=== PATIENT | female | born 1995 | race Caucasian/White ===

== ENCOUNTER 2016-10-16 12:33 | Emergency (ER) | payer OTHER ==
[2016-10-16] MEDS ORDERED: GASTROGRAFIN SOLUTION 30ML (Q9963) As Ordered ONE (14:47)
[2016-10-16] MEDS ORDERED: KETOROLAC 30 MG/ML VIAL (J1885) As Ordered ONE (14:48)
[2016-10-16] MEDS ORDERED: TRIMETHOBENZAMIDE HCL INJ 200 MG/2 ML VIAL (J3250) As Ordered ONE (14:51)
[2016-10-16 15:29] LABS: ALBUMIN 4.7 GM/DL (3.2-5.2); ALBUMIN/GLOBULIN RATIO 1.47 (1.00-1.93); ALKALINE PHOSPHATASE 79 U/L (45-117); ALT/SGPT 21 U/L (12-78); AMYLASE 65 U/L (25-115); ANION GAP 8 MEQ/L (8-16); AST/SGOT 12 U/L (15-37); BILIRUBIN,DIRECT 0.2 MG/DL (0.0-0.2); BILIRUBIN,TOTAL 0.7 MG/DL (0.2-1.0); BLOOD UREA NITROGEN 10 MG/DL (7-18); CALCIUM LEVEL 9.5 MG/DL (8.5-10.1); CARBON DIOXIDE LEVEL 28 MEQ/L (21-32); CHLORIDE LEVEL 107 MEQ/L (98-107); CREATININE FOR GFR 1.02 MG/DL (0.55-1.02); GLOMERULAR FILTRATION RATE > 60.0 (>60); GLUCOSE, FASTING 95 MG/DL (70-105); POTASSIUM SERUM 3.4 MEQ/L (3.5-5.1); SODIUM LEVEL 143 MEQ/L (136-145); TOTAL PROTEIN 7.9 GM/DL (6.4-8.2)
[2016-10-16 16:02] LABS: BASO # 0.1 K/mm3 (0.0-0.2); BASO % 0.7 % (0.0-1.0); EOS # 0.1 K/mm3 (0.0-0.50); EOS % 0.7 % (0.0-3.0); LARGE UNSTAINED CELL # 0.2 K/mm3 (0.0-0.4); LARGE UNSTAINED CELL % 1.4 % (0.0-4.0); LYMPH # 2.9 K/mm3 (1.5-6.5); LYMPH % 23.3 % (24.0-44.0); MEAN CORPUSCULAR HEMOGLOBIN 28.7 pg (27.0-33.0); MEAN CORPUSCULAR HGB CONC 33.1 g/dl (32.0-36.5); MEAN CORPUSCULAR VOLUME 86.6 fl (80.0-96.0); MONO # 0.4 K/mm3 (0.0-0.8); NEUTROPHILS # 8.5 K/mm3 (1.8-7.7); NEUTROPHILS % 71.1 % (36.0-66.0); PLATELET COUNT, AUTOMATED 260 k/mm3 (150-450); RED CELL DISTRIBUTION WIDTH 14.8 % (11.5-14.5); WHITE BLOOD COUNT 11.9 K/mm3 (4.0-10.0)
[2016-10-16] MEDS ORDERED: ISOVUE-370 76% 100ML VIAL (Q9967) As Ordered ONE (16:14)
--- NOTE | 2016-10-16 16:46 | REP ---
Clinical: Right lower quadrant pain. Technique: Axial contrast enhanced images from the lung bases to the pubic symphysis using oral and 100 ml Isovue 370 intravenous contrast material with coronal and sagittal re-formations. Findings: Lung bases clear. Visualized heart and pericardium normal. Liver, spleen, pancreas, gallbladder, bilateral adrenal glands and kidneys are normal. The enteric system is without obstruction or acute inflammatory process and a normal terminal ileum and appendix are identified in the right lower quadrant. Pelvis demonstrates normal bladder and age-appropriate uterus/adnexa with IUD in satisfactory position and subtle cystic changes to the right ovary likely related to menstrual cycle and possibly related to patient's symptoms. No pelvic fluid or ascites. No free air. No adenopathy. Vasculature is normal. Musculoskeletal structures demonstrate chronic lumbosacral scoliosis. Impression: 1. Normal appendix and no evidence for acute appendicitis or significant acute intra-abdominal/pelvic pathology. 2. Cystic changes to the right ovary likely physiologic in possibly related to patient's symptoms. No free fluid. Signed by Jordan Carrillo MD 10/16/2016 04:38 P
[2016-10-16 17:10] LABS: CONTROL LINE UCG INT CTR LINE PRESENT
--- NOTE | 2016-10-16 17:28 | EDDOCDS ---
Physician Documentation [facility] Name: Massiel Goodrich Age: 21 yrs Sex: Female : 1995 Arrival Date: 10/16/2016 Time: 12:33 Bed I4 / M4 Private MD: Alonso [facility] [place] Disposition: 10/16/16 17:17 Discharged to Home/Self Care. Impression: Other ovarian cysts - RIGHT, Lower abdominal pain, unspecified - RLQ, Nausea with vomiting, unspecified. - Condition is Stable. - Discharge Instructions: Nausea and Vomiting, Ovarian Cyst. - Prescriptions for Ultram 50 mg Oral Tablet - take 1 tablet by ORAL route every 6 hours As needed MDD: 4 tabs; 15 tablet. Tigan 300 mg Oral Capsule - take 1 capsule by ORAL route every 12 hours As needed; 20 capsule. - Medication Reconciliation, Local Pharmacy Hours form. - Follow up: Emergency Department; When: As needed; Reason: Worsening of conditions. Follow up: Your Pct; When: 2 - 3 days; Reason: Wound/Symptom Recheck, Recheck today's complaints, Continuance of care. - Problem is new. - Symptoms are unchanged. Historical: - Allergies: No known drug Allergies; - Home Meds: 1. Lexapro 20 mg Oral tab 1 tab once daily 2. Excedrin Extra Strength 250-250-65 mg Oral tab as needed - PMHx: Anxiety; Depression; - PSHx: none; - Social history: Smoking status: Patient states former smoker of tobacco. No barriers to communication noted, The patient speaks fluent Malay. - Family history: Not pertinent. - : The pt / caregiver states he / she is not on anticoagulants. Home medication list is obtained from the patient. - Exposure Risk Screening:: None identified. HEALTHCARE TRANSLATOR: 10/16 12:38 LMP 09/19/2016 kcs Vital Signs: 12:34 BP 113 / 64; Pulse 70; Resp 20; Temp 98.3(O); Pulse Ox 97% ; Weight 57.61 kg / 127.01 cmb lbs; Height 5 ft. 4 in. (162.56 cm); Pain 8/10; 15:32 Pain 7/10; kr3 15:35 BP 121 / 62; Pulse 65; Resp 18; Temp 98.0; Pulse Ox 99% ; Pain 7/10; jam1 17:21 BP 129 / 69; Pulse 76; Resp 18; Temp 98.1; Pulse Ox 99% ; Pain 8/10; jam1 12:34 Body Mass Index 21.80 (57.61 kg, 162.56 cm) cmb MDM: 14:42 NS 0.9% 1000 ml IV at bolus once ordered. dt4 14:42 ketorolac 30 mg IVP once ordered. dt4 14:42 IV Saline Lock ordered. dt4 14:42 Undress patient appropriately for examination ordered. dt4 14:42 Tigan 200 mg IM once ordered. dt4 14:42 Amylase Ordered. EDMS 14:42 Basic Metabolic Profile Ordered. EDMS 14:42 CBC with Diff Ordered. EDMS 14:42 Lipase Ordered. EDMS 14:42 Liver Profile Ordered. EDMS 14:42 Urinalysis Ordered. EDMS 14:42 CRP Ordered. EDMS 14:42 Urine Culture Ordered. EDMS 14:43 CT ABD & PELVIS: IV and Oral Contrast Ordered. EDMS 14:43 NOTHING BY MOUTH+DIET ordered. EDMS 15:53 [facility] Payment Agreement was scanned into [employer] and attached to record. jp5 15:53 Financial registration complete. jp5 16:47 UCG- In Lab Ordered. EDMS Administered Medications: 14:59 Drug: NS 0.9% 1000 ml [sodium chloride 0.9 % injection solution] Route: IV; Rate: dsf bolus; Site: right antecubital; 17:26 Follow up: IV Status: Completed infusion; IV Intake: 1000ml dsf 14:59 Drug: ketorolac 30 mg [ketorolac 30 mg/mL (1 mL) injection solution (1 mL)] Route: IVP; dsf Site: right antecubital; 15:32 Follow up: Pain 7/10 Adult; Response: No significant change. kr3 14:59 Drug: Tigan 200 mg [Tigan 100 mg/mL intramuscular solution (2 mL)] Route: IM; Site: dsf right gluteus; 15:32 Follow up: Response: Nausea is resolved kr3 Signatures: Dispatcher [employer] EDMS Kaitlyn Crowell RN RN kcs Fuller, Desiree, RN RN dsf Mi Orozco PA-C PA-C dt4 Jeremiah Castillo 5 Gisella Sparrow RN kr3 The chart was reviewed and I authenticate all verbal orders and agree with the evaluation and treatment provided.Attachments: 15:53 [facility] Payment Agreement jp5 MTDD
--- NOTE | 2016-10-16 17:28 | EDDOCDS ---
Nurse's Notes [facility] Name: Massiel Goodrich Age: 21 yrs Sex: Female : 1995 Arrival Date: 10/16/2016 Time: 12:33 Bed I4 / M4 Private MD: DALE Gupta Diagnosis: Other ovarian cysts-RIGHT;Lower abdominal pain, unspecified-RLQ;Nausea with vomiting, unspecified Presentation: 10/16 12:36 Presenting complaint: Patient states: for the last half hour 45 minutes she has had kcs vomiting and diarrhea - now pins and needles in her hands, feels dizzy and her vision is blurry. Adult Sepsis Screening: The patient does not have new or worsening altered mentation. Patient's respiratory rate is less than 22. Systolic blood pressure is greater than 100. Patient has a qSOFA score of 0- Negative Sepsis Screen. Suicide/Homicide risk assessment- the patient denies having any suicidal and/or homicidal ideations and does not present with any other emotional, behavioral or mental health complaints. Status: The patient is a dependent. Transition of care: patient was not received from another setting of care. 12:36 Acuity: JOVANY Level 3 kcs 12:36 Method Of Arrival: Wheelchair kcs Triage Assessment: 12:38 General: Appears well developed, well nourished, well groomed, patient laying in kcs wheelchair like a dishrag. Behavior is cooperative, flat. Pain: Location: abdominal pain Pain currently is 9 out of 10 on a pain scale. Pt Declines HIV testing. Neurological: Level of Consciousness is awake, alert. Respiratory: Airway is patent Respiratory effort is even, unlabored, Respiratory pattern is regular, symmetrical. GI: Reports diarrhea, nausea, vomiting. Derm: Skin is intact, is healthy with good turgor, Skin is dry, Skin is normal. SUGAR SAMPLER: 12:38 LMP 09/19/2016 kcs Historical: - Allergies: No known drug Allergies; - Home Meds: 1. Lexapro 20 mg Oral tab 1 tab once daily 2. Excedrin Extra Strength 250-250-65 mg Oral tab as needed - PMHx: Anxiety; Depression; - PSHx: none; - Social history: Smoking status: Patient states former smoker of tobacco. No barriers to communication noted, The patient speaks fluent Greek. - Family history: Not pertinent. - : The pt / caregiver states he / she is not on anticoagulants. Home medication list is obtained from the patient. - Exposure Risk Screening:: None identified. Screenin:02 Screening information is obtained from the patient. Fall risk: No risks identified. kr3 Assistance ADL's: requires no assistance with activities of daily living. Abuse/DV Screen: The patient / caregiver reports he/she is: not in a situation that causes fear, pain or injury. Nutritional screening: No deficits noted. Advance Directives: Currently, there is no health care proxy. home support is adequate. Assessment: 15:01 General: Appears in no apparent distress, comfortable, Behavior is cooperative. Pain: kr3 Location: right lower quadrant Pain currently is 8 out of 10 on a pain scale. Neurological: No deficits noted. Respiratory: Respiratory effort is even, unlabored. GI: Bowel sounds present X 4 quads. Abd is tender to palpation in right lower quadrant. Derm: Skin is pink, warm & dry. 15:32 Reassessment: Patient appears in no apparent distress at this time. General: drinking kr3 and tolerating CT contrast with no difficulty. Pain: Location: abdomen Pain currently is 7 out of 10 on a pain scale. 16:27 Reassessment: Patient appears in no apparent distress at this time. Pain: Location: kr3 abdomen Pain currently is 6 out of 10 on a pain scale. GI: Denies nausea. 17:25 Adult Sepsis Screening: The patient does not have new or worsening altered mentation. dsf Patient's respiratory rate is less than 22. Systolic blood pressure is greater than 100. Patient has a qSOFA score of 0- Negative Sepsis Screen. General: Appears in no apparent distress, comfortable, Behavior is appropriate for age, cooperative. Neurological: Level of Consciousness is awake, alert. Cardiovascular: Capillary refill < 3 seconds. Respiratory: Airway is patent Respiratory effort is even, unlabored, Respiratory pattern is regular, symmetrical. GI: Abdomen is non- distended. Derm: Skin is pink, warm & dry. Vital Signs: 12:34 BP 113 / 64; Pulse 70; Resp 20; Temp 98.3(O); Pulse Ox 97% ; Weight 57.61 kg; Height 5 cmb ft. 4 in. (162.56 cm); Pain 8/10; 15:32 Pain 7/10; kr3 15:35 BP 121 / 62; Pulse 65; Resp 18; Temp 98.0; Pulse Ox 99% ; Pain 7/10; jam1 17:21 BP 129 / 69; Pulse 76; Resp 18; Temp 98.1; Pulse Ox 99% ; Pain 8/10; jam1 12:34 Body Mass Index 21.80 (57.61 kg, 162.56 cm) cmb Vitals: 12:34 Log In Time: October 16, 2016 at 12:33. cmb ED Course: 12:34 Patient visited by Heydi May. cmb 12:34 Alonso [facility] is Private Physician. cmb 12:34 Patient moved to Waiting cmb 12:35 Patient moved to Pre RCE cmb 12:37 Triage Initiated kcs 13:56 Patient moved to Triage 2 kcs 14:05 [facility] dt4 14:05 Tony Ellis MD is Attending Physician. dt4 14:05 Patient visited by Mi Orozco PA-C. dt4 14:46 Patient moved to I4 / M4 rs3 15:01 CRP Sent. kr3 15:01 Amylase Sent. kr3 15:01 Basic Metabolic Profile Sent. kr3 15:01 CBC with Diff Sent. kr3 15:01 Lipase Sent. kr3 15:01 Liver Profile Sent. kr3 15:01 Urinalysis Sent. kr3 15:01 Urine Culture Sent. kr3 15:01 Inserted saline lock: 20 gauge in right antecubital area and blood collected. The kr3 patient tolerated the procedure well. 15:32 Patient visited by Gisella Sparrow RN. kr3 15:53 [facility] Payment Agreement was scanned into [employer] and attached to record. jp5 16:[address] kr3 16:26 Patient moved to I4 / M4 dsf 16:27 The patient / caregiver is instructed regarding the plan of care and ED course. Patient clary has correct armband on for positive identification. Placed in gown. Bed in low position. Call light in reach. Side rails up X 1. 16:28 Patient visited by Gisella Sparrow RN. kr3 16:48 Patient name changed from Massiel\S\\S\Goodrich\S\ to Massiel\S\Juliette\S\Goodrich. EDMS 17:17 Your Infrastructure Solutions Architect is Referral Physician. dt4 17:26 Discontinued lock intact, bleeding controlled, pressure dressing applied, No dsf redness/swelling at site. No procedures done that require assistance. Administered Medications: 14:59 Drug: NS 0.9% 1000 ml [sodium chloride 0.9 % injection solution] Route: IV; Rate: dsf bolus; Site: right antecubital; 17:26 Follow up: IV Status: Completed infusion; IV Intake: 1000ml dsf 14:59 Drug: ketorolac 30 mg [ketorolac 30 mg/mL (1 mL) injection solution (1 mL)] Route: IVP; dsf Site: right antecubital; 15:32 Follow up: Pain 7/10 Adult; Response: No significant change. kr3 14:59 Drug: Tigan 200 mg [Tigan 100 mg/mL intramuscular solution (2 mL)] Route: IM; Site: dsf right gluteus; 15:32 Follow up: Response: Nausea is resolved kr3 Intake: 17:26 IV: 1000.00ml; Total: 1000.00ml. dsf Order Results: Lab Order: Amylase; SPEC'M 10/16/16 14:57 Test: AMYLASE; Value: 65; Range: 25-115; Units: U/L; Status: F Lab Order: Basic Metabolic Profile; SPEC'M 10/16/16 14:57 Test: GLUCOSE, FASTING; Value: 95; Range: 70-105; Units: MG/DL; Status: F Test: BLOOD UREA NITROGEN; Value: 10; Range: 7-18; Units: MG/DL; Status: F Test: CREATININE FOR GFR; Value: 1.02; Range: 0.55-1.02; Units: MG/DL; Status: F Test: GLOMERULAR FILTRATION RATE; Value: > 60.0; Range: >60; Status: F Test: SODIUM LEVEL; Value: 143; Range: 136-145; Units: MEQ/L; Status: F Test: POTASSIUM SERUM; Value: 3.4; Range: 3.5-5.1; Abnormal: Below low normal; Units: MEQ/L; Status: F Test: CHLORIDE LEVEL; Value: 107; Range: 98-107; Units: MEQ/L; Status: F Test: CARBON DIOXIDE LEVEL; Value: 28; Range: 21-32; Units: MEQ/L; Status: F Test: ANION GAP; Value: 8; Range: 8-16; Units: MEQ/L; Status: F Test: CALCIUM LEVEL; Value: 9.5; Range: 8.5-10.1; Units: MG/DL; Status: F Test Note: ; Units are mL/min/1.73 m2 Chronic Kidney Disease Staging per NKF: Stage I & II GFR >=60 Normal to Mildly Decreased Stage III GFR 30-59 Moderately Decreased Stage IV GFR 15-29 Severely Decreased Stage V GFR <15 Very Little GFR Left ESRD GFR <15 on IMPORTER OR EXPORTER Lab Order: CBC with Diff; SPEC'M 10/16/16 14:57 Test: WHITE BLOOD COUNT; Value: 11.9; Range: 4.0-10.0; Abnormal: Above high normal; Units: K/mm3; Status: F Test: RED BLOOD COUNT; Value: 4.86; Range: 4.00-5.40; Units: M/mm3; Status: F Test: HEMOGLOBIN; Value: 13.9; Range: 12.0-16.0; Units: g/dl; Status: F Test: HEMATOCRIT; Value: 42.1; Range: 36.0-47.0; Units: %; Status: F Test: MEAN CORPUSCULAR VOLUME; Value: 86.6; Range: 80.0-96.0; Units: fl; Status: F Test: MEAN CORPUSCULAR HEMOGLOBIN; Value: 28.7; Range: 27.0-33.0; Units: pg; Status: F Test: MEAN CORPUSCULAR HGB CONC; Value: 33.1; Range: 32.0-36.5; Units: g/dl; Status: F Test: RED CELL DISTRIBUTION WIDTH; Value: 14.8; Range: 11.5-14.5; Abnormal: Above high normal; Units: %; Status: F Test: PLATELET COUNT, AUTOMATED; Value: 260; Range: 150-450; Units: k/mm3; Status: F Test: NEUTROPHILS %; Value: 71.1; Range: 36.0-66.0; Abnormal: Above high normal; Units: %; Status: F Test: LYMPH %; Value: 23.3; Range: 24.0-44.0; Abnormal: Below low normal; Units: %; Status: F Test: MONO %; Value: 3.0; Range: 0.0-5.0; Units: %; Status: F Test: EOS %; Value: 0.7; Range: 0.0-3.0; Units: %; Status: F Test: BASO %; Value: 0.7; Range: 0.0-1.0; Units: %; Status: F Test: LARGE UNSTAINED CELL %; Value: 1.4; Range: 0.0-4.0; Units: %; Status: F Test: NEUTROPHILS #; Value: 8.5; Range: 1.8-7.7; Abnormal: Above high normal; Units: K/mm3; Status: F Test: LYMPH #; Value: 2.9; Range: 1.5-6.5; Units: K/mm3; Status: F Test: MONO #; Value: 0.4; Range: 0.0-0.8; Units: K/mm3; Status: F Test: EOS #; Value: 0.1; Range: 0.0-0.50; Units: K/mm3; Status: F Test: BASO #; Value: 0.1; Range: 0.0-0.2; Units: K/mm3; Status: F Test: LARGE UNSTAINED CELL #; Value: 0.2; Range: 0.0-0.4; Units: K/mm3; Status: F Lab Order: Lipase; SPEC' 10/16/16 14:57 Test: LIPASE; Value: 71; Range: 73-393; Abnormal: Below low normal; Units: U/L; Status: F Lab Order: Liver Profile; SPEC' 10/16/16 14:57 Test: AST/SGOT; Value: 12; Range: 15-37; Abnormal: Below low normal; Units: U/L; Status: F Test: ALT/SGPT; Value: 21; Range: 12-78; Units: U/L; Status: F Test: ALKALINE PHOSPHATASE; Value: 79; Range: 45-117; Units: U/L; Status: F Test: BILIRUBIN,TOTAL; Value: 0.7; Range: 0.2-1.0; Units: MG/DL; Status: F Test: BILIRUBIN,DIRECT; Value: 0.2; Range: 0.0-0.2; Units: MG/DL; Status: F Test: TOTAL PROTEIN; Value: 7.9; Range: 6.4-8.2; Units: GM/DL; Status: F Test: ALBUMIN; Value: 4.7; Range: 3.2-5.2; Units: GM/DL; Status: F Test: ALBUMIN/GLOBULIN RATIO; Value: 1.47; Range: 1.00-1.93; Status: F Lab Order: Urinalysis; SPEC'M 10/16/16 14:57 Test: APPEARANCE, URINE; Value: CLEAR; Range: CLEAR; Status: F Test: COLOR, URINE; Value: YELLOW; Range: YELLOW; Status: F Test: PH,URINE; Value: 6.0; Range: 5.0-9.0; Units: UNITS; Status: F Test: SPECIFIC GRAVITY URINE AUTO; Value: 1.013; Range: 1.002-1.035; Status: F Test: PROTEIN, URINE AUTO; Value: NEGATIVE; Range: NEGATIVE; Units: mg/dL; Status: F Test: GLUCOSE, URINE (UA) AUTO; Value: NEGATIVE; Range: NEGATIVE; Units: mg/dL; Status: F Test: KETONE, URINE AUTO; Value: TRACE; Range: NEGATIVE; Abnormal: Above high normal; Units: mg/dL; Status: F Test: UROBILINOGEN, URINE AUTO; Value: 0.2; Range: 0.0-2.0; Units: mg/dL; Status: F Test: BILIRUBIN, URINE AUTO; Value: NEGATIVE; Range: NEGATIVE; Status: F Test: NITRITE, URINE AUTO; Value: NEGATIVE; Range: NEGATIVE; Status: F Test: LEUKOCYTE ESTERASE, URINE AUTO; Value: 1+; Range: NEGATIVE; Abnormal: Above high normal; Status: F Test: BLOOD, URINE BLOOD; Value: NEGATIVE; Range: NEGATIVE; Status: F Test: WBC, URINE AUTO; Value: 1; Range: 0-3; Units: /HPF; Status: F Test: RBC, URINE AUTO; Value: 2; Range: 0-3; Units: /HPF; Status: F Test: BACTERIA, URINE AUTO; Value: 1+; Range: NEGATIVE; Abnormal: Above high normal; Status: F Test: SQUAMOUS EPITHELIAL CELL UR AU; Value: 3; Range: 0-6; Units: /HPF; Status: F Test: MUCUS, URINE; Value: SMALL; Range: NEGATIVE; Status: F Test: HYALINE CAST, URINE AUTO; Value: 0; Range: 0-1; Units: /LPF; Status: F Lab Order: CRP; SPEC'M 10/16/16 14:57 Test: C REACTIVE PROTEIN QUANTITATIV; Value: < 0.30; Range: 0.00-0.30; Units: MG/DL; Status: F Lab Order: UCG- In Lab; SPEC'M 10/16/16 14:57 Test: URINE PREG TEST; Value: NEGATIVE; Range: NEGATIVE; Status: F Outcome: 16:27 CT Study completed. kr3 17:17 Discharge ordered by Provider. dt4 17:26 Discharge Assessment: Patient awake, alert and oriented x 3. No cognitive and/or dsf functional deficits noted. Patient verbalized understanding of disposition instructions. patient administered narcotics - no. The following High Risk Discharge criteria are identified: None. Discharged to home ambulatory, with significant other. Condition: stable. Discharge instructions given to patient, Instructed on discharge instructions, follow up and referral plans. medication usage, no driving heavy equipment, Demonstrated understanding of instructions, medications, Pt was receptive of discharge instructions/ teaching. Prescriptions given X 2. Property sent home with patient. 17:27 Patient left the ED. dsf Signatures: Dispatcher [employer] EDMS Kaitlyn Crowell, RN RN Keyana Hinojosa, PRODUCTION BORING MACHINE OPERATOR PRODUCTION BORING MACHINE OPERATOR jam1 Gisella Sparrow RN RN ada3 Polly Montanez RN RN rs3 Cary Anguiano RN RN dsf Heydi May Diane, PA-C PA-C dt4 Jeremiah Castillo MTDD
--- NOTE | 2016-10-18 18:27 | EDDOCDS ---
Nurse's Notes [facility] Name: Massiel Goodrich Age: 21 yrs Sex: Female : 1995 Arrival Date: 10/16/2016 Time: 12:33 Bed I4 / M4 Private MD: DALE Gupta Diagnosis: Other ovarian cysts-RIGHT;Lower abdominal pain, unspecified-RLQ;Nausea with vomiting, unspecified Presentation: 10/16 12:36 Presenting complaint: Patient states: for the last half hour 45 minutes she has had kcs vomiting and diarrhea - now pins and needles in her hands, feels dizzy and her vision is blurry. Adult Sepsis Screening: The patient does not have new or worsening altered mentation. Patient's respiratory rate is less than 22. Systolic blood pressure is greater than 100. Patient has a qSOFA score of 0- Negative Sepsis Screen. Suicide/Homicide risk assessment- the patient denies having any suicidal and/or homicidal ideations and does not present with any other emotional, behavioral or mental health complaints. Status: The patient is a dependent. Transition of care: patient was not received from another setting of care. 12:36 Acuity: JOVANY Level 3 kcs 12:36 Method Of Arrival: Wheelchair kcs Triage Assessment: 12:38 General: Appears well developed, well nourished, well groomed, patient laying in kcs wheelchair like a dishrag. Behavior is cooperative, flat. Pain: Location: abdominal pain Pain currently is 9 out of 10 on a pain scale. Pt Declines HIV testing. Neurological: Level of Consciousness is awake, alert. Respiratory: Airway is patent Respiratory effort is even, unlabored, Respiratory pattern is regular, symmetrical. GI: Reports diarrhea, nausea, vomiting. Derm: Skin is intact, is healthy with good turgor, Skin is dry, Skin is normal. 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 Lexapro 20 mg Oral tab 1 tab once daily 2. Excedrin Extra Strength 250-250-65 mg Oral tab as needed - PMHx: Anxiety; Depression; - PSHx: none; - Social history: Smoking status: Patient states former smoker of tobacco. No barriers to communication noted, The patient speaks fluent Faroese. - Family history: Not pertinent. - : The pt / caregiver states he / she is not on anticoagulants. Home medication list is obtained from the patient. - Exposure Risk Screening:: None identified. Screenin:02 Screening information is obtained from the patient. Fall risk: No risks identified. kr3 Assistance ADL's: requires no assistance with activities of daily living. Abuse/DV Screen: The patient / caregiver reports he/she is: not in a situation that causes fear, pain or injury. Nutritional screening: No deficits noted. Advance Directives: Currently, there is no health care proxy. home support is adequate. Assessment: 15:01 General: Appears in no apparent distress, comfortable, Behavior is cooperative. Pain: kr3 Location: right lower quadrant Pain currently is 8 out of 10 on a pain scale. Neurological: No deficits noted. Respiratory: Respiratory effort is even, unlabored. GI: Bowel sounds present X 4 quads. Abd is tender to palpation in right lower quadrant. Derm: Skin is pink, warm & dry. 15:32 Reassessment: Patient appears in no apparent distress at this time. General: drinking kr3 and tolerating CT contrast with no difficulty. Pain: Location: abdomen Pain currently is 7 out of 10 on a pain scale. 16:27 Reassessment: Patient appears in no apparent distress at this time. Pain: Location: kr3 abdomen Pain currently is 6 out of 10 on a pain scale. GI: Denies nausea. 17:25 Adult Sepsis Screening: The patient does not have new or worsening altered mentation. dsf Patient's respiratory rate is less than 22. Systolic blood pressure is greater than 100. Patient has a qSOFA score of 0- Negative Sepsis Screen. General: Appears in no apparent distress, comfortable, Behavior is appropriate for age, cooperative. Neurological: Level of Consciousness is awake, alert. Cardiovascular: Capillary refill < 3 seconds. Respiratory: Airway is patent Respiratory effort is even, unlabored, Respiratory pattern is regular, symmetrical. GI: Abdomen is non- distended. Derm: Skin is pink, warm & dry. Vital Signs: 12:34 BP 113 / 64; Pulse 70; Resp 20; Temp 98.3(O); Pulse Ox 97% ; Weight 57.61 kg; Height 5 cmb ft. 4 in. (162.56 cm); Pain 8/10; 15:32 Pain 7/10; kr3 15:35 BP 121 / 62; Pulse 65; Resp 18; Temp 98.0; Pulse Ox 99% ; Pain 7/10; jam1 17:21 BP 129 / 69; Pulse 76; Resp 18; Temp 98.1; Pulse Ox 99% ; Pain 8/10; jam1 12:34 Body Mass Index 21.80 (57.61 kg, 162.56 cm) cmb Vitals: 12:34 Log In Time: October 16, 2016 at 12:33. cmb ED Course: 12:34 Patient visited by Heydi May. cmb 12:34 [place] [facility] [place]. cmb 12:34 Patient moved to Waiting cmb 12:35 Patient moved to Pre RCE cmb 12:37 Triage Initiated kcs 13:56 Patient moved to Triage 2 kcs 14:05 [facility] dt4 14:05 Tony Ellis MD is Attending Physician. dt4 14:05 Patient visited by Mi Orozco PA-C. dt4 14:46 Patient moved to I4 / M4 rs3 15:01 CRP Sent. kr3 15:01 Amylase Sent. kr3 15:01 Basic Metabolic Profile Sent. kr3 15:01 CBC with Diff Sent. kr3 15:01 Lipase Sent. kr3 15:01 Liver Profile Sent. kr3 15:01 Urinalysis Sent. kr3 15:01 Urine Culture Sent. kr3 15:01 Inserted saline lock: 20 gauge in right antecubital area and blood collected. The kr3 patient tolerated the procedure well. 15:32 Patient visited by Gisella Sparrow RN. kr3 15:53 [facility] Payment Agreement was scanned into Yesmail and attached to record. jp5 16:[address] kr3 16:26 Patient moved to I4 / M4 dsf 16:27 The patient / caregiver is instructed regarding the plan of care and ED course. Patient clary has correct armband on for positive identification. Placed in gown. Bed in low position. Call light in reach. Side rails up X 1. 16:28 Patient visited by Gisella Sparrow RN. kr3 16:48 Patient name changed from Massiel\S\\S\Goodrich\S\ to Massiel\S\Juliette\S\Goodrich. EDMS 17:17 Your Rebeamer is Referral Physician. dt4 17:26 Discontinued lock intact, bleeding controlled, pressure dressing applied, No dsf redness/swelling at site. No procedures done that require assistance. 17:33 CT ABD & PELVIS: IV and Oral Contrast Returned. EDMS 10/17 11:25 T-Sheet-- Draft Copy was scanned into Yesmail and attached to record. gb 11:25 Radiology Report was scanned into Yesmail and attached to record. gb Administered Medications: 10/16 14:59 Drug: NS 0.9% 1000 ml [sodium chloride 0.9 % injection solution] Route: IV; Rate: dsf bolus; Site: right antecubital; 17:26 Follow up: IV Status: Completed infusion; IV Intake: 1000ml dsf 14:59 Drug: ketorolac 30 mg [ketorolac 30 mg/mL (1 mL) injection solution (1 mL)] Route: IVP; dsf Site: right antecubital; 15:32 Follow up: Pain 7/10 Adult; Response: No significant change. kr3 14:59 Drug: Tigan 200 mg [Tigan 100 mg/mL intramuscular solution (2 mL)] Route: IM; Site: dsf right gluteus; 15:32 Follow up: Response: Nausea is resolved kr3 Intake: 17:26 IV: 1000.00ml; Total: 1000.00ml. dsf Order Results: Lab Order: Amylase; SPEC'M 10/16/16 14:57 Test: AMYLASE; Value: 65; Range: 25-115; Units: U/L; Status: F Lab Order: Basic Metabolic Profile; SPEC'M 10/16/16 14:57 Test: GLUCOSE, FASTING; Value: 95; Range: 70-105; Units: MG/DL; Status: F Test: BLOOD UREA NITROGEN; Value: 10; Range: 7-18; Units: MG/DL; Status: F Test: CREATININE FOR GFR; Value: 1.02; Range: 0.55-1.02; Units: MG/DL; Status: F Test: GLOMERULAR FILTRATION RATE; Value: > 60.0; Range: >60; Status: F Test: SODIUM LEVEL; Value: 143; Range: 136-145; Units: MEQ/L; Status: F Test: POTASSIUM SERUM; Value: 3.4; Range: 3.5-5.1; Abnormal: Below low normal; Units: MEQ/L; Status: F Test: CHLORIDE LEVEL; Value: 107; Range: 98-107; Units: MEQ/L; Status: F Test: CARBON DIOXIDE LEVEL; Value: 28; Range: 21-32; Units: MEQ/L; Status: F Test: ANION GAP; Value: 8; Range: 8-16; Units: MEQ/L; Status: F Test: CALCIUM LEVEL; Value: 9.5; Range: 8.5-10.1; Units: MG/DL; Status: F Test Note: ; Units are mL/min/1.73 m2 Chronic Kidney Disease Staging per NKF: Stage I & II GFR >=60 Normal to Mildly Decreased Stage III GFR 30-59 Moderately Decreased Stage IV GFR 15-29 Severely Decreased Stage V GFR <15 Very Little GFR Left ESRD GFR <15 on PROCESS PLANNER Lab Order: CBC with Diff; SPEC'M 10/16/16 14:57 Test: WHITE BLOOD COUNT; Value: 11.9; Range: 4.0-10.0; Abnormal: Above high normal; Units: K/mm3; Status: F Test: RED BLOOD COUNT; Value: 4.86; Range: 4.00-5.40; Units: M/mm3; Status: F Test: HEMOGLOBIN; Value: 13.9; Range: 12.0-16.0; Units: g/dl; Status: F Test: HEMATOCRIT; Value: 42.1; Range: 36.0-47.0; Units: %; Status: F Test: MEAN CORPUSCULAR VOLUME; Value: 86.6; Range: 80.0-96.0; Units: fl; Status: F Test: MEAN CORPUSCULAR HEMOGLOBIN; Value: 28.7; Range: 27.0-33.0; Units: pg; Status: F Test: MEAN CORPUSCULAR HGB CONC; Value: 33.1; Range: 32.0-36.5; Units: g/dl; Status: F Test: RED CELL DISTRIBUTION WIDTH; Value: 14.8; Range: 11.5-14.5; Abnormal: Above high normal; Units: %; Status: F Test: PLATELET COUNT, AUTOMATED; Value: 260; Range: 150-450; Units: k/mm3; Status: F Test: NEUTROPHILS %; Value: 71.1; Range: 36.0-66.0; Abnormal: Above high normal; Units: %; Status: F Test: LYMPH %; Value: 23.3; Range: 24.0-44.0; Abnormal: Below low normal; Units: %; Status: F Test: MONO %; Value: 3.0; Range: 0.0-5.0; Units: %; Status: F Test: EOS %; Value: 0.7; Range: 0.0-3.0; Units: %; Status: F Test: BASO %; Value: 0.7; Range: 0.0-1.0; Units: %; Status: F Test: LARGE UNSTAINED CELL %; Value: 1.4; Range: 0.0-4.0; Units: %; Status: F Test: NEUTROPHILS #; Value: 8.5; Range: 1.8-7.7; Abnormal: Above high normal; Units: K/mm3; Status: F Test: LYMPH #; Value: 2.9; Range: 1.5-6.5; Units: K/mm3; Status: F Test: MONO #; Value: 0.4; Range: 0.0-0.8; Units: K/mm3; Status: F Test: EOS #; Value: 0.1; Range: 0.0-0.50; Units: K/mm3; Status: F Test: BASO #; Value: 0.1; Range: 0.0-0.2; Units: K/mm3; Status: F Test: LARGE UNSTAINED CELL #; Value: 0.2; Range: 0.0-0.4; Units: K/mm3; Status: F Lab Order: Lipase; SPEC'M 10/16/16 14:57 Test: LIPASE; Value: 71; Range: 73-393; Abnormal: Below low normal; Units: U/L; Status: F Lab Order: Liver Profile; SPEC'M 10/16/16 14:57 Test: AST/SGOT; Value: 12; Range: 15-37; Abnormal: Below low normal; Units: U/L; Status: F Test: ALT/SGPT; Value: 21; Range: 12-78; Units: U/L; Status: F Test: ALKALINE PHOSPHATASE; Value: 79; Range: 45-117; Units: U/L; Status: F Test: BILIRUBIN,TOTAL; Value: 0.7; Range: 0.2-1.0; Units: MG/DL; Status: F Test: BILIRUBIN,DIRECT; Value: 0.2; Range: 0.0-0.2; Units: MG/DL; Status: F Test: TOTAL PROTEIN; Value: 7.9; Range: 6.4-8.2; Units: GM/DL; Status: F Test: ALBUMIN; Value: 4.7; Range: 3.2-5.2; Units: GM/DL; Status: F Test: ALBUMIN/GLOBULIN RATIO; Value: 1.47; Range: 1.00-1.93; Status: F Lab Order: Urinalysis; SPEC'M 10/16/16 14:57 Test: APPEARANCE, URINE; Value: CLEAR; Range: CLEAR; Status: F Test: COLOR, URINE; Value: YELLOW; Range: YELLOW; Status: F Test: PH,URINE; Value: 6.0; Range: 5.0-9.0; Units: UNITS; Status: F Test: SPECIFIC GRAVITY URINE AUTO; Value: 1.013; Range: 1.002-1.035; Status: F Test: PROTEIN, URINE AUTO; Value: NEGATIVE; Range: NEGATIVE; Units: mg/dL; Status: F Test: GLUCOSE, URINE (UA) AUTO; Value: NEGATIVE; Range: NEGATIVE; Units: mg/dL; Status: F Test: KETONE, URINE AUTO; Value: TRACE; Range: NEGATIVE; Abnormal: Above high normal; Units: mg/dL; Status: F Test: UROBILINOGEN, URINE AUTO; Value: 0.2; Range: 0.0-2.0; Units: mg/dL; Status: F Test: BILIRUBIN, URINE AUTO; Value: NEGATIVE; Range: NEGATIVE; Status: F Test: NITRITE, URINE AUTO; Value: NEGATIVE; Range: NEGATIVE; Status: F Test: LEUKOCYTE ESTERASE, URINE AUTO; Value: 1+; Range: NEGATIVE; Abnormal: Above high normal; Status: F Test: BLOOD, URINE BLOOD; Value: NEGATIVE; Range: NEGATIVE; Status: F Test: WBC, URINE AUTO; Value: 1; Range: 0-3; Units: /HPF; Status: F Test: RBC, URINE AUTO; Value: 2; Range: 0-3; Units: /HPF; Status: F Test: BACTERIA, URINE AUTO; Value: 1+; Range: NEGATIVE; Abnormal: Above high normal; Status: F Test: SQUAMOUS EPITHELIAL CELL UR AU; Value: 3; Range: 0-6; Units: /HPF; Status: F Test: MUCUS, URINE; Value: SMALL; Range: NEGATIVE; Status: F Test: HYALINE CAST, URINE AUTO; Value: 0; Range: 0-1; Units: /LPF; Status: F Lab Order: Urine Culture; SPEC'M 10/16/16 14:57 Test: URINE CULTURE; Value: URINE CULTURE RESULT NO GROWTH; Status: F Lab Order: CRP; SPEC'M 10/16/16 14:57 Test: C REACTIVE PROTEIN QUANTITATIV; Value: < 0.30; Range: 0.00-0.30; Units: MG/DL; Status: F Lab Order: UCG- In Lab; SPEC'M 10/16/16 14:57 Test: URINE PREG TEST; Value: NEGATIVE; Range: NEGATIVE; Status: F Radiology Order: CT ABD & PELVIS: IV and Oral Contrast Test: CT ABD & PELVIS: IV and Oral Contrast REASON FOR EXAMINATION: Appendicitis; Clinical: Right lower quadrant pain.; ; Technique: Axial contrast enhanced images from the lung bases to the pubic; symphysis using oral and 100 ml Isovue 370 intravenous contrast material with; coronal and sagittal re-formations.; ; Findings:; Lung bases clear. Visualized heart and pericardium normal.; ; Liver, spleen, pancreas, gallbladder, bilateral adrenal glands and kidneys are; normal. The enteric system is without obstruction or acute inflammatory process; and a normal terminal ileum and appendix are identified in the right lower; quadrant.; ; Pelvis demonstrates normal bladder and age-appropriate uterus/adnexa with IUD in; satisfactory position and subtle cystic changes to the right ovary likely related; to menstrual cycle and possibly related to patient's symptoms. No pelvic fluid; or ascites. No free air. No adenopathy. Vasculature is normal.; Musculoskeletal structures demonstrate chronic lumbosacral scoliosis.; ; Impression:; 1. Normal appendix and no evidence for acute appendicitis or significant acute; intra-abdominal/pelvic pathology.; 2. Cystic changes to the right ovary likely physiologic in possibly related to; patient's symptoms. No free fluid.; ; ; Signed by; Jordan Carrillo MD 10/16/2016 04:38 P; Outcome: 16:27 CT Study completed. kr3 17:17 Discharge ordered by Provider. dt4 17:26 Discharge Assessment: Patient awake, alert and oriented x 3. No cognitive and/or dsf functional deficits noted. Patient verbalized understanding of disposition instructions. patient administered narcotics - no. The following High Risk Discharge criteria are identified: None. Discharged to home ambulatory, with significant other. Condition: stable. Discharge instructions given to patient, Instructed on discharge instructions, follow up and referral plans. medication usage, no driving heavy equipment, Demonstrated understanding of instructions, medications, Pt was receptive of discharge instructions/ teaching. Prescriptions given X 2. Property sent home with patient. 17:27 Patient left the ED. dsf Signatures: Dispatcher Med[employer] EDMS Kaitlyn Crowell, RN RN Keyana Hinojosa, CERTIFIED PHLEBOTOMY TECHNICIAN CERTIFIED PHLEBOTOMY TECHNICIAN jam1 Bryanna Rhodes, Reg Reg Gisella VelásquezRN RN kr3 Polly Montanez RN RN rs3 Cary Anguiano RN RN dsf Heydi May Diane, PA-C PA-C dt4 Jeremiah Castillo jp5 Chart Complete MTDKriss
--- NOTE | 2016-10-18 18:27 | EDDOCDS ---
Physician Documentation [facility] Name: Massiel Goodrich Age: 21 yrs Sex: Female : 1995 Arrival Date: 10/16/2016 Time: 12:33 Bed I4 / M4 Private MD: Alonso [facility] [place] Disposition: 10/16/16 17:17 Discharged to Home/Self Care. Impression: Other ovarian cysts - RIGHT, Lower abdominal pain, unspecified - RLQ, Nausea with vomiting, unspecified. - Condition is Stable. - Discharge Instructions: Nausea and Vomiting, Ovarian Cyst. - Prescriptions for Ultram 50 mg Oral Tablet - take 1 tablet by ORAL route every 6 hours As needed MDD: 4 tabs; 15 tablet. Tigan 300 mg Oral Capsule - take 1 capsule by ORAL route every 12 hours As needed; 20 capsule. - Medication Reconciliation, Local Pharmacy Hours form. - Follow up: Emergency Department; When: As needed; Reason: Worsening of conditions. 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 - Problem is new. - Symptoms are unchanged. Historical: - Allergies: No known drug Allergies; - Home Meds: 1. Lexapro 20 mg Oral tab 1 tab once daily 2. Excedrin Extra Strength 250-250-65 mg Oral tab as needed - PMHx: Anxiety; Depression; - PSHx: none; - Social history: Smoking status: Patient states former smoker of tobacco. No barriers to communication noted, The patient speaks fluent Latvian. - Family history: Not pertinent. - : The pt / caregiver states he / she is not on anticoagulants. Home medication list is obtained from the patient. - Exposure Risk Screening:: None identified. 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 4 in. (162.56 cm); Pain 8/10; 15:32 Pain 7/10; kr3 15:35 BP 121 / 62; Pulse 65; Resp 18; Temp 98.0; Pulse Ox 99% ; Pain 7/10; jam1 17:21 BP 129 / 69; Pulse 76; Resp 18; Temp 98.1; Pulse Ox 99% ; Pain 8/10; jam1 12:34 Body Mass Index 21.80 (57.61 kg, 162.56 cm) cmb MDM: 14:42 NS 0.9% 1000 ml IV at bolus once ordered. dt4 14:42 ketorolac 30 mg IVP once ordered. dt4 14:42 IV Saline Lock ordered. dt4 14:42 Undress patient appropriately for examination ordered. dt4 14:42 Tigan 200 mg IM once ordered. dt4 14:42 Amylase Ordered. EDMS 14:42 Basic Metabolic Profile Ordered. EDMS 14:42 CBC with Diff Ordered. EDMS 14:42 Lipase Ordered. EDMS 14:42 Liver Profile Ordered. EDMS 14:42 Urinalysis Ordered. EDMS 14:42 CRP Ordered. EDMS 14:42 Urine Culture Ordered. EDMS 14:43 CT ABD & PELVIS: IV and Oral Contrast Ordered. EDMS 14:43 NOTHING BY MOUTH+DIET ordered. EDMS 15:53 [facility] [place] was scanned into BluPanda and attached to record. jp5 15:53 Financial registration complete. jp5 16:47 UCG- In Lab Ordered. EDMS 10/17 11:25 T-Sheet-- Draft Copy was scanned into [employer] and attached to record. 11:25 Radiology Report was scanned into BluPanda and attached to record. gb Administered Medications: 10/16 14:59 Drug: NS 0.9% 1000 ml [sodium chloride 0.9 % injection solution] Route: IV; Rate: dsf bolus; Site: right antecubital; 17:26 Follow up: IV Status: Completed infusion; IV Intake: 1000ml dsf 14:59 Drug: ketorolac 30 mg [ketorolac 30 mg/mL (1 mL) injection solution (1 mL)] Route: IVP; dsf Site: right antecubital; 15:32 Follow up: Pain 7/10 Adult; Response: No significant change. kr3 14:59 Drug: Tigan 200 mg [Tigan 100 mg/mL intramuscular solution (2 mL)] Route: IM; Site: dsf right gluteus; 15:32 Follow up: Response: Nausea is resolved kr3 Signatures: Dispatcher [employer] EDMS Kaitlyn Crowell RN RN Bryanna Cardozo, Reg Reg gb Cary Anguiano RN RN dsf Tschudi, Diane, PA-C PA-C dt4 Jeremiah Castillo jp5 Gisella Sparrow RN kr3 The chart was reviewed and I authenticate all verbal orders and agree with the evaluation and treatment provided.Attachments: 15:53 [facility] Payment Agreement jp5 10/17 11:25 T-Sheet-- Draft Copy gb Chart Complete MTDD
--- NOTE | 2016-10-18 18:27 | EDDOCDS ---
Physician Documentation [facility] Name: Massiel Goodrich Age: 21 yrs Sex: Female : 1995 Arrival Date: 10/16/2016 Time: 12:33 Bed I4 / M4 Private MD: Alonso [facility] [place] Disposition: 10/16/16 17:17 Discharged to Home/Self Care. Impression: Other ovarian cysts - RIGHT, Lower abdominal pain, unspecified - RLQ, Nausea with vomiting, unspecified. - Condition is Stable. - Discharge Instructions: Nausea and Vomiting, Ovarian Cyst. - Prescriptions for Ultram 50 mg Oral Tablet - take 1 tablet by ORAL route every 6 hours As needed MDD: 4 tabs; 15 tablet. Tigan 300 mg Oral Capsule - take 1 capsule by ORAL route every 12 hours As needed; 20 capsule. - Medication Reconciliation, Local Pharmacy Hours form. - Follow up: Emergency Department; When: As needed; Reason: Worsening of conditions. 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 - Problem is new. - Symptoms are unchanged. Historical: - Allergies: No known drug Allergies; - Home Meds: 1. Lexapro 20 mg Oral tab 1 tab once daily 2. Excedrin Extra Strength 250-250-65 mg Oral tab as needed - PMHx: Anxiety; Depression; - PSHx: none; - Social history: Smoking status: Patient states former smoker of tobacco. No barriers to communication noted, The patient speaks fluent Serbian. - Family history: Not pertinent. - : The pt / caregiver states he / she is not on anticoagulants. Home medication list is obtained from the patient. - Exposure Risk Screening:: None identified. 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 4 in. (162.56 cm); Pain 8/10; 15:32 Pain 7/10; kr3 15:35 BP 121 / 62; Pulse 65; Resp 18; Temp 98.0; Pulse Ox 99% ; Pain 7/10; jam1 17:21 BP 129 / 69; Pulse 76; Resp 18; Temp 98.1; Pulse Ox 99% ; Pain 8/10; jam1 12:34 Body Mass Index 21.80 (57.61 kg, 162.56 cm) cmb MDM: 14:42 NS 0.9% 1000 ml IV at bolus once ordered. dt4 14:42 ketorolac 30 mg IVP once ordered. dt4 14:42 IV Saline Lock ordered. dt4 14:42 Undress patient appropriately for examination ordered. dt4 14:42 Tigan 200 mg IM once ordered. dt4 14:42 Amylase Ordered. EDMS 14:42 Basic Metabolic Profile Ordered. EDMS 14:42 CBC with Diff Ordered. EDMS 14:42 Lipase Ordered. EDMS 14:42 Liver Profile Ordered. EDMS 14:42 Urinalysis Ordered. EDMS 14:42 CRP Ordered. EDMS 14:42 Urine Culture Ordered. EDMS 14:43 CT ABD & PELVIS: IV and Oral Contrast Ordered. EDMS 14:43 NOTHING BY MOUTH+DIET ordered. EDMS 15:53 [facility] [place] Payment Agreement was scanned into [employer] and attached to record. jp5 15:53 Financial registration complete. jp5 16:47 UCG- In Lab Ordered. EDMS 10/17 11:25 T-Sheet-- Draft Copy was scanned into [employer] and attached to record. 11:25 Radiology Report was scanned into [employer] and attached to record. gb Administered Medications: 10/16 14:59 Drug: NS 0.9% 1000 ml [sodium chloride 0.9 % injection solution] Route: IV; Rate: dsf bolus; Site: right antecubital; 17:26 Follow up: IV Status: Completed infusion; IV Intake: 1000ml dsf 14:59 Drug: ketorolac 30 mg [ketorolac 30 mg/mL (1 mL) injection solution (1 mL)] Route: IVP; dsf Site: right antecubital; 15:32 Follow up: Pain 7/10 Adult; Response: No significant change. kr3 14:59 Drug: Tigan 200 mg [Tigan 100 mg/mL intramuscular solution (2 mL)] Route: IM; Site: dsf right gluteus; 15:32 Follow up: Response: Nausea is resolved kr3 Signatures: Dispatcher [employer] EDMS Kaitlyn Crowell RN RN Bryanna Cardozo, Reg Reg gb Cary Anguiano RN RN dsf Tschudi, Diane, PA-C PA-C dt4 Jeremiah Castillo jp5 Gisella Sparrow RN kr3 The chart was reviewed and I authenticate all verbal orders and agree with the evaluation and treatment provided.Attachments: 15:53 [facility] Payment Agreement jp5 10/17 11:25 T-Sheet-- Draft Copy gb Chart Complete MTDD
== END 2016-10-16 17:27 | disposition home or self-care (01) ==
LOC: M ED 12:33
DX: N83.201 Unspecified ovarian cyst, right side (principal); R11.2 Nausea with vomiting, unspecified; R10.31 Right lower quadrant pain; F41.9 Anxiety disorder, unspecified; F32.9 Major depressive disorder, single episode, unspecified; Z87.891 Personal history of nicotine dependence; Z79.899 Other long term (current) drug therapy
CPT/HCPCS: 36415; 74177; 80048; 80076; 81001; 82150; 83690; 84703; 85025; 86140; 87086; 96361; 96372; 96374; 99284; J1885; J3250; Q9963; Q9967

== ENCOUNTER 2016-10-31 20:18 | Emergency (ER) | payer OTHER ==
[2016-10-31] MEDS ORDERED: KETOROLAC 30 MG/ML VIAL (J1885) As Ordered ONE (21:12)
[2016-10-31 21:30] LABS: BASO % 0.5 % (0.0-1.0); EOS # 0.2 K/mm3 (0.0-0.50); LARGE UNSTAINED CELL # 0.1 K/mm3 (0.0-0.4); LARGE UNSTAINED CELL % 1.2 % (0.0-4.0); LYMPH # 2.8 K/mm3 (1.5-6.5); MEAN CORPUSCULAR HGB CONC 32.9 g/dl (32.0-36.5); MEAN CORPUSCULAR VOLUME 88.4 fl (80.0-96.0); MONO # 0.3 K/mm3 (0.0-0.8); MONO % 3.2 % (0.0-5.0); NEUTROPHILS # 4.6 K/mm3 (1.8-7.7); NEUTROPHILS % 58.1 % (36.0-66.0); PLATELET COUNT, AUTOMATED 236 k/mm3 (150-450); RED CELL DISTRIBUTION WIDTH 13.6 % (11.5-14.5); WHITE BLOOD COUNT 7.9 K/mm3 (4.0-10.0)
--- NOTE | 2016-10-31 22:50 | REPUSA ---
Clinical history: vaginal bleeding. Findings: Real-time transabdominal ultrasound images of the pelvis were obtained. An anteverted uteru s is noted, measuring 7.2 x 3.3 x 4.9 cm. The uterus demonstrates normal echotexture and echogenicity . The endometrial stripe measures 5 mm and is within normal limits. IUD is in place. The right ovary measures 3.4 x 1.4 x 2.1 cm. The left ovary measures 2.4 x 1.7 x 1.6 cm. No adnexal masses are seen. Color Doppler flow is seen within both ovaries. There is no evidence of free fluid. Impression: Unremarkable ultrasound examination of the pelvis.
--- NOTE | 2016-10-31 23:46 | EDDOCDS ---
Nurse's Notes [facility] Name: Massiel Goodrich Age: 21 yrs Sex: Female : 1995 Arrival Date: 10/31/2016 Time: 20:18 Bed I7 / 29 Private MD: DALE Gupta Diagnosis: Abnormal uterine and vaginal bleeding, unspecified Presentation: 10/31 20:23 Presenting complaint: Patient states: Sharp lower abdominal pain on and of for 3 weeks. rs3 vaginal bleeding mild- moderate for 5 days. Risk factors: the patient reports moderate vaginal bleeding. Adult Sepsis Screening: The patient does not have new or worsening altered mentation. Patient's respiratory rate is less than 22. Systolic blood pressure is greater than 100. Patient has a qSOFA score of 0- Negative Sepsis Screen. Suicide/Homicide risk assessment- the patient denies having any suicidal and/or homicidal ideations and does not present with any other emotional, behavioral or mental health complaints. Status: Patient is not a service worker helper or dependent. Transition of care: patient was not received from another setting of care. 20:23 Acuity: JOVANY Level 3 rs3 20:23 Method Of Arrival: Walkin/Carried/Asstd rs3 Triage Assessment: 20:26 General: Appears in no apparent distress. Pain: Location: pelvis. HIV screening NA for rs3 this visit Offered previously. 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 Lexapro 20 mg Oral tab 1 tab once daily 2. Excedrin Extra Strength 250-250-65 mg Oral tab as needed - PMHx: Anxiety; Depression; - PSHx: none; - Social history: Smoking status: Patient states former smoker of tobacco. No barriers to communication noted, The patient speaks fluent Bolivian. - Family history: Not pertinent. - : The pt / caregiver states he / she is not on anticoagulants. Home medication list is obtained from the patient. - Exposure Risk Screening:: None identified. Screenin:23 Screening information is obtained from the patient. Fall risk: No risks identified. kas2 Assistance ADL's: requires no assistance with activities of daily living. Abuse/DV Screen: The patient / caregiver reports he/she is: not in a situation that causes fear, pain or injury. Nutritional screening: No deficits noted. Advance Directives: Currently, there is no health care proxy. There is no active DNR order. There is no living will. There is no Power of Photograph Printer. home support is adequate. Assessment: 21:21 General: Appears in no apparent distress, uncomfortable, well nourished, well groomed, kas2 Behavior is appropriate for age, cooperative. Pain: Location: pelvis Pain currently is 6 out of 10 on a pain scale. Neurological: Level of Consciousness is awake, alert, Oriented to person, place, time. Respiratory: Airway is patent Respiratory effort is even, unlabored, Respiratory pattern is regular, symmetrical. GI: Abdomen is flat, non- distended Bowel sounds present X 4 quads. Abd is tender to palpation X 4 quads. : Denies burning with urination, urinary frequency, urgency, vaginal bleeding. Derm: Skin is intact, Skin is dry, Skin is pink, warm & dry. Skin temperature is warm. 22:26 General: Appears in no apparent distress, comfortable, Behavior is appropriate for age, kas2 cooperative. Pain: Denies pain. Neurological: Level of Consciousness is awake, alert, Oriented to person, place, time. Respiratory: Airway is patent Respiratory effort is even, unlabored, Respiratory pattern is regular, symmetrical. Derm: Skin is intact, Skin is dry, Skin is pink, warm & dry. Skin temperature is warm. Vital Signs: 20:20 BP 113 / 71; Pulse 71; Resp 18 S; Temp 98.0(O); Pulse Ox 99% on R/A; Weight 57.61 kg gr2 (R); Height 5 ft. 4 in. (162.56 cm) (R); Pain 9/10; 23:26 BP 128 / 77; Pulse 60; Resp 18; Temp 98.6; Pulse Ox 99% ; ajs 20:20 Body Mass Index 21.80 (57.61 kg, 162.56 cm) gr2 Vitals: 20:20 Log In Time: October 31, 2016 at 20:20. gr2 ED Course: 20:20 Patient visited by Toña Rivera. gr2 20:20 [place]onso [facility] [place]. gr2 20:20 Patient moved to Waiting gr2 20:21 Patient moved to Pre RCE gr2 20:25 Triage Initiated rs3 20:30 Patient moved to Triage 1 lr2 20:49 Abimael Pinzon RPA-C is PHCP. ck7 20:49 Efren Boston DO is Attending Physician. ck7 20:57 Patient visited by Abimael Pinzon RPA-C. ck7 21:06 Patient visited by Monique Willis. ajs 21:06 Patient moved to I ajs 21:06 Pt greeted and oriented to ED. Patient advised of names of staff involved in care, ajs location of call aj, wait times and NPO status. Accompanied by Family Member, Patient has correct armband on for positive identification. Placed in gown. Bed in low position. Call light in reach. Side rails up X 1. 21:21 CBC with Diff Sent. kas2 21:23 Inserted saline lock: 20 gauge in right antecubital area and blood collected. The kas2 patient tolerated the procedure well. No procedures done that require assistance. 21:24 Patient visited by Ghazala Kothari RN. kas2 21:56 Patient visited by Ghazala Kothari RN. kas2 22:27 Patient visited by Ghazala Kothari RN. kas2 22:30 [facility] Payment Agreement was scanned into [employer] and attached to record. zo 22:58 Patient visited by Ghazala Kothari RN. kas2 23:25 Discontinued IV bleeding controlled, pressure dressing applied, No redness/swelling at kas2 site. 23:26 Patient visited by Ghazala Kothari RN. kas2 23:26 Patient visited by Monique Willis. ajs 23:26 The patient / caregiver is instructed regarding the plan of care and ED course. kas2 23:37 -US Pelvic Non-Ob Complete Returned. EDMS Administered Medications: 21:21 Drug: ketorolac 15 mg [ketorolac 30 mg/mL (1 mL) injection solution (0.5 mL)] Route: kas2 IVP; Site: right antecubital; 21:21 Drug: NS 0.9% 1000 ml [sodium chloride 0.9 % intravenous solution] Route: IV; Rate: kas2 bolus; Site: right antecubital; Point of Care Testing: Urine : 21:48 hCG Reading: Negative; Control Reading: Positive; kas2 Ranges: Order Results: Lab Order: CBC with Diff; SPEC'M 10/31/16 21:19 Test: WHITE BLOOD COUNT; Value: 7.9; Range: 4.0-10.0; Units: K/mm3; Status: F Test: RED BLOOD COUNT; Value: 4.56; Range: 4.00-5.40; Units: M/mm3; Status: F Test: HEMOGLOBIN; Value: 13.2; Range: 12.0-16.0; Units: g/dl; Status: F Test: HEMATOCRIT; Value: 40.3; Range: 36.0-47.0; Units: %; Status: F Test: MEAN CORPUSCULAR VOLUME; Value: 88.4; Range: 80.0-96.0; Units: fl; Status: F Test: MEAN CORPUSCULAR HEMOGLOBIN; Value: 29.0; Range: 27.0-33.0; Units: pg; Status: F Test: MEAN CORPUSCULAR HGB CONC; Value: 32.9; Range: 32.0-36.5; Units: g/dl; Status: F Test: RED CELL DISTRIBUTION WIDTH; Value: 13.6; Range: 11.5-14.5; Units: %; Status: F Test: PLATELET COUNT, AUTOMATED; Value: 236; Range: 150-450; Units: k/mm3; Status: F Test: NEUTROPHILS %; Value: 58.1; Range: 36.0-66.0; Units: %; Status: F Test: LYMPH %; Value: 35.0; Range: 24.0-44.0; Units: %; Status: F Test: MONO %; Value: 3.2; Range: 0.0-5.0; Units: %; Status: F Test: EOS %; Value: 2.0; Range: 0.0-3.0; Units: %; Status: F Test: BASO %; Value: 0.5; Range: 0.0-1.0; Units: %; Status: F Test: LARGE UNSTAINED CELL %; Value: 1.2; Range: 0.0-4.0; Units: %; Status: F Test: NEUTROPHILS #; Value: 4.6; Range: 1.8-7.7; Units: K/mm3; Status: F Test: LYMPH #; Value: 2.8; Range: 1.5-6.5; Units: K/mm3; Status: F Test: MONO #; Value: 0.3; Range: 0.0-0.8; Units: K/mm3; Status: F Test: EOS #; Value: 0.2; Range: 0.0-0.50; Units: K/mm3; Status: F Test: BASO #; Value: 0.0; Range: 0.0-0.2; Units: K/mm3; Status: F Test: LARGE UNSTAINED CELL #; Value: 0.1; Range: 0.0-0.4; Units: K/mm3; Status: F Radiology Order: -US Pelvic Non-Ob Complete Test: -US Pelvic Non-Ob Complete REASON FOR EXAMINATION: Vaginal Bleeding - Nn-; ; Clinical history: vaginal bleeding.; Findings: Real-time transabdominal ultrasound images of the pelvis were obtained. An anteverted uteru; s is noted, measuring 7.2 x 3.3 x 4.9 cm. The uterus demonstrates normal echotexture and echogenicity; . The endometrial stripe measures 5 mm and is within normal limits. IUD is in place. The right ovary; measures 3.4 x 1.4 x 2.1 cm. The left ovary measures 2.4 x 1.7 x 1.6 cm. No adnexal masses are seen.; Color Doppler flow is seen within both ovaries. There is no evidence of free fluid.; Impression: Unremarkable ultrasound examination of the pelvis.; ; Outcome: 23:21 Discharge ordered by Provider. ck7 23:25 Discharge Assessment: patient administered narcotics - no. The following High Risk [facility] Discharge criteria are identified: None. Discharged to home ambulatory, with significant other. Condition: good Condition: stable Condition: improved. No special radiology studies were completed. Property :Personal belongings accompany Pt. 23:45 Patient left the ED. kas2 Signatures: Dispatcher [employer] EDLázaro Segura RosemaryRN RN rs3 Monique Willis Christopher, RPA-C RPA-Cck7 Toña Rivera2 Ghazala Kothari RN RN kas2 Ross, Alejandrina lr2 MTDD
--- NOTE | 2016-10-31 23:46 | EDDOCDS ---
Physician Documentation [facility] Name: Massiel Goodrich Age: 21 yrs Sex: Female : 1995 Arrival Date: 10/31/2016 Time: 20:18 Bed I7 / 29 Private MD: [place] [facility] [place]position: 10/31/16 23:21 Discharged to Home/Self Care. Impression: Abnormal uterine and vaginal bleeding, unspecified. - Condition is Stable. - Discharge Instructions: Abnormal Uterine Bleeding. - Prescriptions for Ibuprofen 600 mg Oral Tablet - take 1 tablet by ORAL route every 6 hours As needed take with food; 30 tablet. - Medication Reconciliation, Local Pharmacy Hours form. - Follow up: Private Physician; When: 2 - 3 days; Reason: Recheck today's complaints, Continuance of care. - Problem is new. - Symptoms have improved. Historical: - Allergies: no known allergies; - Home Meds: 1. Lexapro 20 mg Oral tab 1 tab once daily 2. Excedrin Extra Strength 250-250-65 mg Oral tab as needed - PMHx: Anxiety; Depression; - PSHx: none; - Social history: Smoking status: Patient states former smoker of tobacco. No barriers to communication noted, The patient speaks fluent German. - Family history: Not pertinent. - : The pt / caregiver states he / she is not on anticoagulants. Home medication list is obtained from the patient. - Exposure Risk Screening:: None identified. 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 4 in. (162.56 cm) (R); Pain 9/10; 23:26 BP 128 / 77; Pulse 60; Resp 18; Temp 98.6; Pulse Ox 99% ; ajs 20:20 Body Mass Index 21.80 (57.61 kg, 162.56 cm) gr2 MDM: 21:04 UCG by Nursing ordered. ck7 21:04 IV Saline Lock ordered. ck7 21:04 ketorolac 15 mg IVP once ordered. ck7 21:04 NS 0.9% 1000 ml IV at bolus once ordered. ck7 21:05 CBC with Diff Ordered. EDMS 21:45 CBC with Diff Reviewed. ck7 21:48 -US Pelvic Non-Ob Complete Ordered. EDMS 21:48 DUPLEX SCAN LIMITED (DOPPLER)+US Ordered. EDMS 22:28 Financial registration complete. zo 22:30 [facility] Payment Agreement was scanned into [employer] and attached to record. zo Point of Care Testing: Urine : 21:48 hCG Reading: Negative; Control Reading: Positive; kas2 Ranges: Administered Medications: 21:21 Drug: ketorolac 15 mg [ketorolac 30 mg/mL (1 mL) injection solution (0.5 mL)] Route: kas2 IVP; Site: right antecubital; 21:21 Drug: NS 0.9% 1000 ml [sodium chloride 0.9 % intravenous solution] Route: IV; Rate: kas2 bolus; Site: right antecubital; Signatures: Dispatcher [employer] EDMS Lázaro Anne RosemaryRN RN rs3 Abimael Pinzon, RPA-C RPA-Cck7 Ghazala Kothari RN RN kas2 The chart was reviewed and I authenticate all verbal orders and agree with the evaluation and treatment provided.Attachments: 22:30 [facility] Payment Agreement zo MTDD
--- NOTE | 2016-11-03 00:46 | EDDOCDS ---
Nurse's Notes [facility] Name: Massiel Goodrich Age: 21 yrs Sex: Female : 1995 Arrival Date: 10/31/2016 Time: 20:18 Bed I7 / 29 Private MD: DALE Gupta Diagnosis: Abnormal uterine and vaginal bleeding, unspecified Presentation: 10/31 20:23 Presenting complaint: Patient states: Sharp lower abdominal pain on and of for 3 weeks. rs3 vaginal bleeding mild- moderate for 5 days. Risk factors: the patient reports moderate vaginal bleeding. Adult Sepsis Screening: The patient does not have new or worsening altered mentation. Patient's respiratory rate is less than 22. Systolic blood pressure is greater than 100. Patient has a qSOFA score of 0- Negative Sepsis Screen. Suicide/Homicide risk assessment- the patient denies having any suicidal and/or homicidal ideations and does not present with any other emotional, behavioral or mental health complaints. 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 Transition of care: patient was not received from another setting of care. 20:23 Acuity: JOVANY Level 3 rs3 20:23 Method Of Arrival: Walkin/Carried/Asstd rs3 Triage Assessment: 20:26 General: Appears in no apparent distress. Pain: Location: pelvis. HIV screening NA for rs3 this visit Offered previously. 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 Lexapro 20 mg Oral tab 1 tab once daily 2. Excedrin Extra Strength 250-250-65 mg Oral tab as needed - PMHx: Anxiety; Depression; - PSHx: none; - Social history: Smoking status: Patient states former smoker of tobacco. No barriers to communication noted, The patient speaks fluent Bahamian. - Family history: Not pertinent. - : The pt / caregiver states he / she is not on anticoagulants. Home medication list is obtained from the patient. - Exposure Risk Screening:: None identified. Screenin:23 Screening information is obtained from the patient. Fall risk: No risks identified. kas2 Assistance ADL's: requires no assistance with activities of daily living. Abuse/DV Screen: The patient / caregiver reports he/she is: not in a situation that causes fear, pain or injury. Nutritional screening: No deficits noted. Advance Directives: Currently, there is no health care proxy. There is no active DNR order. There is no living will. There is no Power of Route Sales Person. home support is adequate. Assessment: 21:21 General: Appears in no apparent distress, uncomfortable, well nourished, well groomed, kas2 Behavior is appropriate for age, cooperative. Pain: Location: pelvis Pain currently is 6 out of 10 on a pain scale. Neurological: Level of Consciousness is awake, alert, Oriented to person, place, time. Respiratory: Airway is patent Respiratory effort is even, unlabored, Respiratory pattern is regular, symmetrical. GI: Abdomen is flat, non- distended Bowel sounds present X 4 quads. Abd is tender to palpation X 4 quads. : Denies burning with urination, urinary frequency, urgency, vaginal bleeding. Derm: Skin is intact, Skin is dry, Skin is pink, warm & dry. Skin temperature is warm. 22:26 General: Appears in no apparent distress, comfortable, Behavior is appropriate for age, kas2 cooperative. Pain: Denies pain. Neurological: Level of Consciousness is awake, alert, Oriented to person, place, time. Respiratory: Airway is patent Respiratory effort is even, unlabored, Respiratory pattern is regular, symmetrical. Derm: Skin is intact, Skin is dry, Skin is pink, warm & dry. Skin temperature is warm. Vital Signs: 20:20 BP 113 / 71; Pulse 71; Resp 18 S; Temp 98.0(O); Pulse Ox 99% on R/A; Weight 57.61 kg gr2 (R); Height 5 ft. 4 in. (162.56 cm) (R); Pain 9/10; 23:26 BP 128 / 77; Pulse 60; Resp 18; Temp 98.6; Pulse Ox 99% ; ajs 20:20 Body Mass Index 21.80 (57.61 kg, 162.56 cm) gr2 Vitals: 20:20 Log In Time: October 31, 2016 at 20:20. gr2 ED Course: 20:20 Patient visited by Toña Rivera. gr2 20:20 Alonso [facility] [place] Private Physician. gr2 20:20 Patient moved to Waiting gr2 20:21 Patient moved to Pre RCE gr2 20:25 Triage Initiated rs3 20:30 Patient moved to Triage 1 lr2 20:49 Abimael Pinzon RPA-C is PHCP. ck7 20:49 Efren Boston DO is Attending Physician. ck7 20:57 Patient visited by Abimael Pinzon RPA-C. ck7 21:06 Patient visited by Monique Willis. ajs 21:06 Patient moved to I ajs 21:06 Pt greeted and oriented to ED. Patient advised of names of staff involved in care, aj location of call aj, wait times and NPO status. Accompanied by Family Member, Patient has correct armband on for positive identification. Placed in gown. Bed in low position. Call light in reach. Side rails up X 1. 21:21 CBC with Diff Sent. kas2 21:23 Inserted saline lock: 20 gauge in right antecubital area and blood collected. The kas2 patient tolerated the procedure well. No procedures done that require assistance. 21:24 Patient visited by Ghazala Kothari RN. kas2 21:56 Patient visited by Ghazala Kothari RN. kas2 22:27 Patient visited by Ghazala Kothari RN. kas2 22:30 [facility] Payment Agreement was scanned into [employer] and attached to record. zo 22:58 Patient visited by Ghazala Kothari RN. kas2 23:25 Discontinued IV bleeding controlled, pressure dressing applied, No redness/swelling at kas2 site. 23:26 Patient visited by Ghazala Kothari RN. kas2 23:26 Patient visited by Monique Willis. ajs 23:26 The patient / caregiver is instructed regarding the plan of care and ED course. [facility] 23:37 -US Pelvic Non-Ob Complete Returned. EDMS 11/01 07:37 T-Sheet-- Draft Copy was scanned into [employer] and attached to record. [facility] 10:56 Radiology Report was scanned into [employer] and attached to record. gb Administered Medications: 10/31 21:21 Drug: ketorolac 15 mg [ketorolac 30 mg/mL (1 mL) injection solution (0.5 mL)] Route: kas2 IVP; Site: right antecubital; 21:21 Drug: NS 0.9% 1000 ml [sodium chloride 0.9 % intravenous solution] Route: IV; Rate: kas2 bolus; Site: right antecubital; Point of Care Testing: Urine : 21:48 hCG Reading: Negative; Control Reading: Positive; kas2 Ranges: Order Results: Lab Order: CBC with Diff; SPEC'M 10/31/16 21:19 Test: WHITE BLOOD COUNT; Value: 7.9; Range: 4.0-10.0; Units: K/mm3; Status: F Test: RED BLOOD COUNT; Value: 4.56; Range: 4.00-5.40; Units: M/mm3; Status: F Test: HEMOGLOBIN; Value: 13.2; Range: 12.0-16.0; Units: g/dl; Status: F Test: HEMATOCRIT; Value: 40.3; Range: 36.0-47.0; Units: %; Status: F Test: MEAN CORPUSCULAR VOLUME; Value: 88.4; Range: 80.0-96.0; Units: fl; Status: F Test: MEAN CORPUSCULAR HEMOGLOBIN; Value: 29.0; Range: 27.0-33.0; Units: pg; Status: F Test: MEAN CORPUSCULAR HGB CONC; Value: 32.9; Range: 32.0-36.5; Units: g/dl; Status: F Test: RED CELL DISTRIBUTION WIDTH; Value: 13.6; Range: 11.5-14.5; Units: %; Status: F Test: PLATELET COUNT, AUTOMATED; Value: 236; Range: 150-450; Units: k/mm3; Status: F Test: NEUTROPHILS %; Value: 58.1; Range: 36.0-66.0; Units: %; Status: F Test: LYMPH %; Value: 35.0; Range: 24.0-44.0; Units: %; Status: F Test: MONO %; Value: 3.2; Range: 0.0-5.0; Units: %; Status: F Test: EOS %; Value: 2.0; Range: 0.0-3.0; Units: %; Status: F Test: BASO %; Value: 0.5; Range: 0.0-1.0; Units: %; Status: F Test: LARGE UNSTAINED CELL %; Value: 1.2; Range: 0.0-4.0; Units: %; Status: F Test: NEUTROPHILS #; Value: 4.6; Range: 1.8-7.7; Units: K/mm3; Status: F Test: LYMPH #; Value: 2.8; Range: 1.5-6.5; Units: K/mm3; Status: F Test: MONO #; Value: 0.3; Range: 0.0-0.8; Units: K/mm3; Status: F Test: EOS #; Value: 0.2; Range: 0.0-0.50; Units: K/mm3; Status: F Test: BASO #; Value: 0.0; Range: 0.0-0.2; Units: K/mm3; Status: F Test: LARGE UNSTAINED CELL #; Value: 0.1; Range: 0.0-0.4; Units: K/mm3; Status: F Radiology Order: -US Pelvic Non-Ob Complete Test: -US Pelvic Non-Ob Complete REASON FOR EXAMINATION: Vaginal Bleeding - Nn-; ; Clinical history: vaginal bleeding.; Findings: Real-time transabdominal ultrasound images of the pelvis were obtained. An anteverted uteru; s is noted, measuring 7.2 x 3.3 x 4.9 cm. The uterus demonstrates normal echotexture and echogenicity; . The endometrial stripe measures 5 mm and is within normal limits. IUD is in place. The right ovary; measures 3.4 x 1.4 x 2.1 cm. The left ovary measures 2.4 x 1.7 x 1.6 cm. No adnexal masses are seen.; Color Doppler flow is seen within both ovaries. There is no evidence of free fluid.; Impression: Unremarkable ultrasound examination of the pelvis.; ; Outcome: 23:21 Discharge ordered by Provider. ck7 23:25 Discharge Assessment: patient administered narcotics - no. The following High Risk [facility] Discharge criteria are identified: None. Discharged to home ambulatory, with significant other. Condition: good Condition: stable Condition: improved. No special radiology studies were completed. Property :Personal belongings accompany Pt. 23:45 Patient left the ED. kas2 Signatures: Dispatcher [employer] EDBryanna Quiroz, Lázaro HamiltonPolly,TESFAYE RN rs3 Alba, Abimael Gill, RPA-C RPA-Cck7 Toña Rivera2 Ghazala Kothari RN RN kas2 Bill, Lily Rodriguez, Alejandrina elkins2 Chart Complete MTDD
--- NOTE | 2016-11-03 00:46 | EDDOCDS ---
Physician Documentation [facility] Name: Massiel Goodrich Age: 21 yrs Sex: Female : 1995 Arrival Date: 10/31/2016 Time: 20:18 Bed I7 / 29 Private MD: Alonso [facility] [place] Disposition: 10/31/16 23:21 Discharged to Home/Self Care. Impression: Abnormal uterine and vaginal bleeding, unspecified. - Condition is Stable. - Discharge Instructions: Abnormal Uterine Bleeding. - Prescriptions for Ibuprofen 600 mg Oral Tablet - take 1 tablet by ORAL route every 6 hours As needed take with food; 30 tablet. - Medication Reconciliation, Local Pharmacy Hours form. - Follow up: Private Physician; When: 2 - 3 days; Reason: Recheck today's complaints, Continuance of care. - Problem is new. - Symptoms have improved. Historical: - Allergies: no known allergies; - Home Meds: 1. Lexapro 20 mg Oral tab 1 tab once daily 2. Excedrin Extra Strength 250-250-65 mg Oral tab as needed - PMHx: Anxiety; Depression; - PSHx: none; - Social history: Smoking status: Patient states former smoker of tobacco. No barriers to communication noted, The patient speaks fluent Hebrew. - Family history: Not pertinent. - : The pt / caregiver states he / she is not on anticoagulants. Home medication list is obtained from the patient. - Exposure Risk Screening:: None identified. 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 4 in. (162.56 cm) (R); Pain 9/10; 23:26 BP 128 / 77; Pulse 60; Resp 18; Temp 98.6; Pulse Ox 99% ; ajs 20:20 Body Mass Index 21.80 (57.61 kg, 162.56 cm) gr2 MDM: 21:04 UCG by Nursing ordered. ck7 21:04 IV Saline Lock ordered. ck7 21:04 ketorolac 15 mg IVP once ordered. ck7 21:04 NS 0.9% 1000 ml IV at bolus once ordered. ck7 21:05 CBC with Diff Ordered. EDMS 21:45 CBC with Diff Reviewed. ck7 21:48 -US Pelvic Non-Ob Complete Ordered. EDMS 21:48 DUPLEX SCAN LIMITED (DOPPLER)+US Ordered. EDMS 22:28 Financial registration complete. zo 22:30 [facility] Payment Agreement was scanned into [employer] and attached to record. zo 11/01 07:37 T-Sheet-- Draft Copy was scanned into [employer] and attached to record. [facility] 10:56 Radiology Report was scanned into [employer] and attached to record. Point of Care Testing: Urine : 10/31 21:48 hCG Reading: Negative; Control Reading: Positive; kas2 Ranges: Administered Medications: 21:21 Drug: ketorolac 15 mg [ketorolac 30 mg/mL (1 mL) injection solution (0.5 mL)] Route: kas2 IVP; Site: right antecubital; 21:21 Drug: NS 0.9% 1000 ml [sodium chloride 0.9 % intravenous solution] Route: IV; Rate: kas2 bolus; Site: right antecubital; Signatures: Dispatcher [employer] EDMS Bryanna Rhodes, Reg Reg gb [place], Polly DyerRN RN rs3 Abimael Pinzon RPA-C RPA-Cck7 Ghazala Kothari RN RN claudia2 Lily Khan The chart was reviewed and I authenticate all verbal orders and agree with the evaluation and treatment provided.Attachments: 22:30 [facility] Payment Agreement zo 11/01 07:37 T-Sheet-- Draft Copy [facility] Chart Complete MTDD
--- NOTE | 2016-11-03 00:47 | EDDOCDS ---
Physician Documentation [facility] Name: Massiel Goodrich Age: 21 yrs Sex: Female : 1995 Arrival Date: 10/31/2016 Time: 20:18 Bed I7 / 29 Private MD: Alonso [facility] [place] Disposition: 10/31/16 23:21 Discharged to Home/Self Care. Impression: Abnormal uterine and vaginal bleeding, unspecified. - Condition is Stable. - Discharge Instructions: Abnormal Uterine Bleeding. - Prescriptions for Ibuprofen 600 mg Oral Tablet - take 1 tablet by ORAL route every 6 hours As needed take with food; 30 tablet. - Medication Reconciliation, Local Pharmacy Hours form. - Follow up: Private Physician; When: 2 - 3 days; Reason: Recheck today's complaints, Continuance of care. - Problem is new. - Symptoms have improved. Historical: - Allergies: no known allergies; - Home Meds: 1. Lexapro 20 mg Oral tab 1 tab once daily 2. Excedrin Extra Strength 250-250-65 mg Oral tab as needed - PMHx: Anxiety; Depression; - PSHx: none; - Social history: Smoking status: Patient states former smoker of tobacco. No barriers to communication noted, The patient speaks fluent Yakut. - Family history: Not pertinent. - : The pt / caregiver states he / she is not on anticoagulants. Home medication list is obtained from the patient. - Exposure Risk Screening:: None identified. 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 4 in. (162.56 cm) (R); Pain 9/10; 23:26 BP 128 / 77; Pulse 60; Resp 18; Temp 98.6; Pulse Ox 99% ; ajs 20:20 Body Mass Index 21.80 (57.61 kg, 162.56 cm) gr2 MDM: 21:04 UCG by Nursing ordered. ck7 21:04 IV Saline Lock ordered. ck7 21:04 ketorolac 15 mg IVP once ordered. ck7 21:04 NS 0.9% 1000 ml IV at bolus once ordered. ck7 21:05 CBC with Diff Ordered. EDMS 21:45 CBC with Diff Reviewed. ck7 21:48 -US Pelvic Non-Ob Complete Ordered. EDMS 21:48 DUPLEX SCAN LIMITED (DOPPLER)+US Ordered. EDMS 22:28 Financial registration complete. zo 22:30 [facility] Payment Agreement was scanned into [employer] and attached to record. zo 11/01 07:37 T-Sheet-- Draft Copy was scanned into [employer] and attached to record. [facility] 10:56 Radiology Report was scanned into [employer] and attached to record. Point of Care Testing: Urine : 10/31 21:48 hCG Reading: Negative; Control Reading: Positive; kas2 Ranges: Administered Medications: 21:21 Drug: ketorolac 15 mg [ketorolac 30 mg/mL (1 mL) injection solution (0.5 mL)] Route: kas2 IVP; Site: right antecubital; 21:21 Drug: NS 0.9% 1000 ml [sodium chloride 0.9 % intravenous solution] Route: IV; Rate: kas2 bolus; Site: right antecubital; Signatures: Dispatcher [employer] EDMS Bryanna Rhodes, Reg Reg gb [place], Polly DyerRN RN rs3 Abimael Pinzon RPA-C RPA-Cck7 Ghazala Kothari RN RN claudia2 Lily Khan The chart was reviewed and I authenticate all verbal orders and agree with the evaluation and treatment provided.Attachments: 22:30 [facility] Payment Agreement zo 11/01 07:37 T-Sheet-- Draft Copy [facility] Chart Complete MTDD
== END 2016-10-31 23:45 | disposition home or self-care (01) ==
LOC: M ED 20:18
DX: N93.8 Other specified abnormal uterine and vaginal bleeding (principal); F41.9 Anxiety disorder, unspecified; F32.9 Major depressive disorder, single episode, unspecified; Z87.891 Personal history of nicotine dependence; Z79.899 Other long term (current) drug therapy
CPT/HCPCS: 36415; 76856; 81025; 85025; 93976; 96374; 99284; J1885

== ENCOUNTER 2017-04-14 10:01 | Emergency (ER) | payer OTHER ==
[~2017-04-14] VITALS: Ht 162.6 cm; Wt 58.1 kg
[2017-04-14] MEDS ORDERED: NEXP1IMP SC (10:14)
[2017-04-14] MEDS ORDERED: anxiety medication (10:14)
[2017-04-14] MEDS ORDERED: METOCLOPRAMIDE INJ 10MG/2ML VIAL (J2765) IV ONE (10:30)
[2017-04-14] MEDS ORDERED: NS 1,000 ML IV ONE (10:30)
[2017-04-14 10:43] LABS: BASO % 0.4 % (0.0-1.0); EOS # 0.2 K/mm3 (0.0-0.50); EOS % 2.1 % (0.0-3.0); LARGE UNSTAINED CELL # 0.1 K/mm3 (0.0-0.4); LARGE UNSTAINED CELL % 1.4 % (0.0-4.0); LYMPH # 2.3 K/mm3 (1.5-6.5); LYMPH % 30.4 % (24.0-44.0); MEAN CORPUSCULAR HGB CONC 33.5 g/dl (32.0-36.5); MEAN CORPUSCULAR VOLUME 89.6 fl (80.0-96.0); MONO # 0.3 K/mm3 (0.0-0.8); MONO % 3.8 % (0.0-5.0); NEUTROPHILS # 4.5 K/mm3 (1.8-7.7); NEUTROPHILS % 61.9 % (36.0-66.0); PLATELET COUNT, AUTOMATED 263 k/mm3 (150-450); RED CELL DISTRIBUTION WIDTH 12.9 % (11.5-14.5); WHITE BLOOD COUNT 7.2 K/mm3 (4.0-10.0)
[2017-04-14 11:16] LABS: ALBUMIN 3.9 GM/DL (3.2-5.2); ALBUMIN/GLOBULIN RATIO 1.08 (1.00-1.93); ALKALINE PHOSPHATASE 68 U/L (45-117); ALT/SGPT 27 U/L (12-78); AMYLASE 71 U/L (25-115); ANION GAP 5 MEQ/L (8-16); AST/SGOT 16 U/L (15-37); BILIRUBIN,DIRECT 0.1 MG/DL (0.0-0.2); BILIRUBIN,TOTAL 0.5 MG/DL (0.2-1.0); BLOOD UREA NITROGEN 13 MG/DL (7-18); CALCIUM LEVEL 9.4 MG/DL (8.5-10.1); CARBON DIOXIDE LEVEL 28 MEQ/L (21-32); CHLORIDE LEVEL 107 MEQ/L (98-107); CREATININE FOR GFR 0.91 MG/DL (0.55-1.02); GLOMERULAR FILTRATION RATE > 60.0 (>60); GLUCOSE, FASTING 79 MG/DL (70-105); POTASSIUM SERUM 3.8 MEQ/L (3.5-5.1); SODIUM LEVEL 140 MEQ/L (136-145); TOTAL PROTEIN 7.5 GM/DL (6.4-8.2)
--- NOTE | 2017-04-14 11:23 | REP ---
Chest two views HISTORY: Chest pain Comparison: None The lungs are clear. The heart is normal in size. The pulmonary vasculature is normal in appearance. The bony structure is intact. IMPRESSION: No acute disease. Signed by Rigo Allison MD 04/14/2017 11:15 A
[2017-04-14] MEDS ORDERED: GASTROGRAFIN SOLUTION 30ML (Q9963) As Ordered ONE (11:54)
[2017-04-14] MEDS ORDERED: GASTROGRAFIN SOLUTION 30ML PO ONE (12:05)
[2017-04-14] MEDS ORDERED: GASTROGRAFIN SOLUTION 30ML (Q9963) PO ONE (12:35)
[2017-04-14] MEDS ORDERED: ISOVUE-370 76% 100ML VIAL (Q9967) As Ordered ONE (13:36)
[2017-04-14] MEDS ORDERED: ZOFR4TAB3 PO (14:49)
[2017-04-14 14:58] VITALS: BP 118/81
--- NOTE | 2017-04-14 15:53 | REP ---
REASON FOR EXAM: Left sided abdominal pain, rectal bleeding. COMPARISON: 10/16/2016 which was within normal limits. CONTRAST UTILIZED: 100 mL Isovue 370. The lung bases are clear and unchanged. Once again, seen in the liver, there is a small enhancing subcentimeter sized nodule in the lateral segment of the left lobe consistent with a small venous or arteriovenous vascular anomaly. There are no enhancing hepatic masses. The gallbladder, spleen, pancreas, adrenal glands, and kidneys are within normal limits. The abdominal aorta and para-aortic regions are within normal limits. There is no evidence of an intra-abdominal mass or adenopathy. Multiple gas and fluid filled mild dilated small bowel loops are seen in the abdomen representing a change from the prior exam. No free fluid or free air is present. CT PELVIS: In the right adnexa there is a round 2.5 cm sized low density mass probably ovarian in origin and probably representing a small ovarian cyst. No free fluid or free air is seen in the pelvis. The pelvic bowel loops are unremarkable. Bone window technique throughout the exam shows chronic osseous changes status quo. IMPRESSION: 1. Mild ileus versus early SBO correlate clinically with appropriate followup. 2. Small right ovarian cyst is suspected. This could be confirmed with pelvic ultrasonography if clinically relevant. 3. Other findings as described above. Signed by Kelvin Stanford DO 04/14/2017 04:37 P
--- NOTE | 2017-04-14 18:28 | ECGEPIP ---
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 Order Number: [id number] Reading MD: Lily Dale Measurements Intervals [place] Rate: 61 P: 52 MO: 164 QRS: 83 QRSD: 112 T: 59 QT: 422 QTc: 427 Interpretive Statements SINUS RHYTHM INCOMPLETE RIGHT BUNDLE BRANCH BLOCK NO PRIOR FOR COMPARISON Electronically Signed On 04-14-2017 18:28:25 EDT by Lily Dale
== END 2017-04-14 15:06 | disposition home or self-care (01) ==
LOC: M ED 10:01
DX: K56.7 Ileus, unspecified (principal); N83.201 Unspecified ovarian cyst, right side; F17.210 Nicotine dependence, cigarettes, uncomplicated
CPT/HCPCS: 71020; 74177; 80048; 80076; 81001; 82150; 83690; 85025; 93005; 96374; 99284; J2765; Q9963; Q9967

== ENCOUNTER → 2017-05-18 | Outpatient (REF) | payer OTHER ==
[~2017-05-18] MED LIST: NEXP1IMP SC; ZOFR4TAB3 PO; anxiety medication
== END ==
LOC: M LAB REF 16:35
PROVIDERS: ATTEND Physician Assistant
DX: N39.0 Urinary tract infection, site not specified (principal)

== ENCOUNTER 2017-06-30 21:30 | Emergency (ER) | payer OTHER ==
[~2017-06-30] VITALS: Ht 162.6 cm; Wt 59.1 kg
[2017-07-01 00:20] VITALS: BP 114/60
--- NOTE | 2017-07-01 00:42 | REP ---
Clinical: Trauma. Technique: AP, lateral, bilateral oblique and sunrise views bilateral knees . Findings: The osseous structures and joint spaces are intact and normal. There is no evidence for acute fracture or dislocation. No joint effusion is appreciated. Surrounding soft tissues are unremarkable. No subcutaneous emphysema or radiodense foreign body. Impression: Normal examination. No acute fracture or dislocation. Signed by Jordan Carrillo MD 07/01/2017 12:34 A
== END 2017-07-01 00:20 | disposition home or self-care (01) ==
LOC: M ED 21:30
DX: S80.01XA Contusion of right knee, initial encounter (principal); Z72.0 Tobacco use; W01.198A Fall on same level from slipping, tripping and stumbling with subsequent striking against other object, initial encounter; Y92.410 Unspecified street and highway as the place of occurrence of the external cause; Y93.01 Activity, walking, marching and hiking; Y99.9 Unspecified external cause status

== ENCOUNTER → 2017-10-18 | Outpatient (REF) | payer OTHER | LOC: M LAB REF 19:35 | DX: R30.0 Dysuria (principal) ==

== ENCOUNTER 2017-11-09 19:06 | Emergency (ER) | payer OTHER ==
[2017-11-09 22:55] LABS: INFLUENZA A AMPLIFICATION NEGATIVE (NEGATIVE); INFLUENZA B AMPLIFICATION NEGATIVE (NEGATIVE)
[2017-11-10] MEDS: predniSONE 20 MG TAB PO (00:30)
[2017-11-10] MEDS: AUGMENTIN 875 MG TAB PO (00:30)
== END 2017-11-10 00:44 | disposition home or self-care (01) ==
LOC: M ED 11-10 00:44
DX: J20.9 Acute bronchitis, unspecified (principal); J01.90 Acute sinusitis, unspecified
CPT/HCPCS: 87502

== ENCOUNTER 2018-02-06 11:30 | Emergency (ER) | payer OTHER ==
[2018-02-06 12:19] LABS: HEMATOCRIT 39.3 % (36.0-47.0); MEAN CORPUSCULAR HEMOGLOBIN 28.8 pg (27.0-33.0); MEAN CORPUSCULAR HGB CONC 33.1 g/dl (32.0-36.5); MEAN CORPUSCULAR VOLUME 86.9 fl (80.0-96.0); PLATELET COUNT, AUTOMATED 261 10^3/uL (150-450); RED BLOOD COUNT 4.52 10^6/uL (4.00-5.40); RED CELL DISTRIBUTION WIDTH 13.3 % (11.5-14.5)
[2018-02-06 12:47] LABS: AMPHETAMINES LEVEL URINE NEGATIVE (NEGATIVE); BARBITURATES URINE NEGATIVE (NEGATIVE); BENZODIAZEPINES URINE NEGATIVE (NEGATIVE); CANNABINOIDS URINE NEGATIVE (NEGATIVE); COCAINE METABOLITE URINE NEGATIVE (NEGATIVE); METHADONE URINE NEGATIVE (NEGATIVE); OPIATES URINE NEGATIVE (NEGATIVE); PHENCYCLIDINE URINE NEGATIVE (NEGATIVE)
[2018-02-06 12:58] LABS: ALBUMIN 4.1 GM/DL (3.2-5.2); ALBUMIN/GLOBULIN RATIO 1.14 (1.00-1.93); ALKALINE PHOSPHATASE 56 U/L (45-117); ALT/SGPT 17 U/L (12-78); ANION GAP 6 MEQ/L (8-16); AST/SGOT 13 U/L (7-37); BILIRUBIN,DIRECT 0.1 MG/DL (0.0-0.2); BILIRUBIN,TOTAL 0.4 MG/DL (0.2-1.0); BLOOD UREA NITROGEN 10 MG/DL (7-18); CALCIUM LEVEL 9.1 MG/DL (8.5-10.1); CARBON DIOXIDE LEVEL 26 MEQ/L (21-32); CHLORIDE LEVEL 110 MEQ/L (98-107); CREATININE FOR GFR 0.98 MG/DL (0.55-1.30); ETHYL ALCOHOL (ETHANOL) < 0.003 % (0.000-0.010); GLOMERULAR FILTRATION RATE > 60.0 (>60); GLUCOSE, FASTING 93 MG/DL (70-100); POTASSIUM SERUM 3.9 MEQ/L (3.5-5.1); SALICYLATE LEVEL < 1.7 MG/DL (5.0-30.0); SODIUM LEVEL 142 MEQ/L (136-145); TOTAL PROTEIN 7.7 GM/DL (6.4-8.2)
[2018-02-06 12:59] LABS: ACETAMINOPHEN LEVEL < 2.0 UG/ML (10.0-30.0)
== END 2018-02-06 15:35 | disposition home or self-care (01) ==
LOC: M ED 11:30
DX: F32.9 Major depressive disorder, single episode, unspecified (principal); F41.9 Anxiety disorder, unspecified; F43.20 Adjustment disorder, unspecified; F17.210 Nicotine dependence, cigarettes, uncomplicated
CPT/HCPCS: G0480

== ENCOUNTER 2018-05-01 20:14 | Emergency (ER) | payer OTHER ==
[2018-05-01 21:36] LABS: AMORPHOUS SEDIMENT RFX SMALL (NEGATIVE); KETONE, URINE AUTO RFX NEGATIVE (NEGATIVE); LEUKOCYTE ESTERASE UR AUTO RFX NEGATIVE (NEGATIVE); NITRITE, URINE AUTO RFX NEGATIVE (NEGATIVE); RBC, URINE AUTO RFX 1 /HPF (0-3); SPECIFIC GRAVITY UR AUTO RFX 1.025 (1.002-1.035); SQUAM EPITHELIAL CELL UR AURFX 1 /HPF (0-6); WBC, URINE AUTO RFX 2 /HPF (0-3)
[2018-05-01 22:09] LABS: CONTROL LINE HCG INT CTR LINE PRESENT; HCG, SERUM QUALITATIVE NEGATIVE (NEGATIVE)
[2018-05-01 22:13] LABS: ANION GAP 7 MEQ/L (8-16); BLOOD UREA NITROGEN 12 MG/DL (7-18); CALCIUM LEVEL 8.9 MG/DL (8.5-10.1); CARBON DIOXIDE LEVEL 26 MEQ/L (21-32); CHLORIDE LEVEL 108 MEQ/L (98-107); CREATININE FOR GFR 0.99 MG/DL (0.55-1.30); GLOMERULAR FILTRATION RATE > 60.0 (>60); GLUCOSE, FASTING 91 MG/DL (70-100); POTASSIUM SERUM 3.4 MEQ/L (3.5-5.1); SODIUM LEVEL 141 MEQ/L (136-145)
[2018-05-01 22:15] LABS: BASO % 0.3 % (0.0-1.0); EOS # 0.2 10^3/uL (0.0-0.50); EOS % 2.2 % (0.0-3.0); HEMOGLOBIN 12.2 g/dl (12.0-15.5); IMMATURE GRANULOCYTE % 0.1 % (0-3.0); LYMPH # 3.4 10^3/uL (1.5-6.5); LYMPH % 43.3 % (24.0-44.0); MEAN CORPUSCULAR HEMOGLOBIN 28.6 pg (27.0-33.0); MEAN CORPUSCULAR VOLUME 86.7 fl (80.0-96.0); MONO # 0.5 10^3/uL (0.0-0.8); MONO % 6.6 % (0.0-5.0); NEUTROPHILS # 3.7 10^3/uL (1.8-7.7); NEUTROPHILS % 47.5 % (36.0-66.0); PLATELET COUNT, AUTOMATED 252 10^3/uL (150-450); RED BLOOD COUNT 4.27 10^6/uL (4.00-5.40); RED CELL DISTRIBUTION WIDTH 12.9 % (11.5-14.5); WHITE BLOOD COUNT 7.9 10^3/uL (4.0-10.0)
[2018-05-02 00:03] LABS: CHLAMYDIA DNA AMPLIFICATION NEGATIVE (NEGATIVE); GC DNA AMPLIFICATION NEGATIVE (NEGATIVE)
== END 2018-05-01 23:31 | disposition home or self-care (01) ==
LOC: M ED 20:14
DX: N93.9 Abnormal uterine and vaginal bleeding, unspecified (principal); E87.6 Hypokalemia; N85.8 Other specified noninflammatory disorders of uterus; R42 Dizziness and giddiness; F60.3 Borderline personality disorder; Z79.3 Long term (current) use of hormonal contraceptives; F17.210 Nicotine dependence, cigarettes, uncomplicated
CPT/HCPCS: 76856

== ENCOUNTER 2019-01-08 14:13 | Emergency (ER) | payer OTHER ==
[~2019-01-08] VITALS: Ht 165.1 cm; Wt 62.7 kg
[~2019-01-08 14:13] MED LIST changes: +AUGM875T28 PO; +IBUP80TA PO; +PRED20TA PO; +TESS100C PO; +TRINTAB; +ZOFR4TAB14 PO; -ZOFR4TAB3 PO
[2019-01-08] MEDS ORDERED: LEVOTAB19 (14:25)
[2019-01-08] MEDS ORDERED: KETOROLAC 30 MG/ML VIAL (J1885) IV ONE (14:45)
[2019-01-08] MEDS ORDERED: ONDANSETRON 4MG/2ML VIAL (J2405) IV PRN (14:45)
[2019-01-08] MEDS ORDERED: NS 1,000 ML IV ONE (14:45)
--- NOTE | 2019-01-08 15:13 | REP ---
Clinical: Lower abdominal pain and flank pain. Technique: Axial noncontrast images from the lung bases to the pubic symphysis with coronal and sagittal re-formations. Comparison: 04/14/2017. Findings: Lung bases are clear. Visualized heart and pericardium normal. Liver, spleen, pancreas, gallbladder, bilateral adrenal glands kidneys are normal for noncontrast evaluation. The enteric system is without obstruction or acute inflammatory process. Normal appendix identified in the right lower quadrant. Pelvis demonstrates normal bladder and age-appropriate uterus/adnexa. Phleboliths in the left yonny pelvis are stable compared to 2017. No ascites. No free air. No adenopathy. Abdominal aorta without aneurysm. Musculoskeletal structures grossly intact without focal osseous abnormality. Impression: Normal examination. No acute abdominopelvic pathology appreciated. Electronically Signed by Jordan Carrillo MD 01/08/2019 03:04 P
[2019-01-08 15:39] LABS: ALBUMIN 3.6 GM/DL (3.2-5.2); ALT/SGPT 23 U/L (12-78); BILIRUBIN,TOTAL 0.4 MG/DL (0.2-1.0); BLOOD UREA NITROGEN 12 MG/DL (7-18); CALCIUM LEVEL 8.9 MG/DL (8.5-10.1); CARBON DIOXIDE LEVEL 26 MEQ/L (21-32); CHLORIDE LEVEL 107 MEQ/L (98-107); CREATININE FOR GFR 0.92 MG/DL (0.55-1.30); GLOMERULAR FILTRATION RATE > 60.0 (>60); GLUCOSE, FASTING 83 MG/DL (70-100); POTASSIUM SERUM 3.7 MEQ/L (3.5-5.1); SODIUM LEVEL 140 MEQ/L (136-145); TOTAL PROTEIN 7.1 GM/DL (6.4-8.2)
[2019-01-08 15:45] LABS: BASO % 0.3 % (0.0-1.0); EOS # 0.1 10^3/uL (0.0-0.50); EOS % 2.2 % (0.0-3.0); HEMATOCRIT 37.7 % (36.0-47.0); HEMOGLOBIN 12.6 g/dl (12.0-15.5); LYMPH # 2.2 10^3/uL (1.5-6.5); LYMPH % 34.7 % (24.0-44.0); MEAN CORPUSCULAR HEMOGLOBIN 29.4 pg (27.0-33.0); MEAN CORPUSCULAR HGB CONC 33.4 g/dl (32.0-36.5); MEAN CORPUSCULAR VOLUME 87.9 fl (80.0-96.0); MONO # 0.4 10^3/uL (0.0-0.8); MONO % 6.7 % (0.0-5.0); NEUTROPHILS # 3.5 10^3/uL (1.8-7.7); NEUTROPHILS % 55.8 % (36.0-66.0); PLATELET COUNT, AUTOMATED 233 10^3/uL (150-450); RED BLOOD COUNT 4.29 10^6/uL (4.00-5.40); WHITE BLOOD COUNT 6.2 10^3/uL (4.0-10.0)
[2019-01-08] MEDS ORDERED: CIPR-249 PO (15:55)
[2019-01-08] MEDS ORDERED: REGL10TA6 PO (15:55)
[2019-01-08] MEDS ORDERED: DICY1CAP8 PO (15:55)
[2019-01-08] MEDS ORDERED: COLA100C5 PO (15:55)
[2019-01-08 16:00] VITALS: BP 107/60
[2019-01-08] MEDS ORDERED: CIPROFLOXACIN 500 MG TAB PO ONE (16:00)
== END 2019-01-08 16:11 | disposition home or self-care (01) ==
LOC: M ED 14:13
DX: K92.1 Melena (principal); R10.9 Unspecified abdominal pain; F60.3 Borderline personality disorder; F17.200 Nicotine dependence, unspecified, uncomplicated; Z79.3 Long term (current) use of hormonal contraceptives; Z79.899 Other long term (current) drug therapy; Z79.2 Long term (current) use of antibiotics
CPT/HCPCS: 74176; 80053; 81001; 81025; 85025; 87086; 96374; 96375; 99284; J1885; J2405